=== PATIENT | female | born 1945 | race Caucasian/White ===

== ENCOUNTER → 2017-05-13 | Outpatient (CLI) | payer OTHER ==
[~2017-05-13] VITALS: Ht 165.1 cm; Wt 72.6 kg
[~2017-05-13] MED LIST: AQUA CARE71 GM TOP; ASPIRIN81 M2 PO; DILTIAZEM ER300 M2 PO; ECONAZOLE 1% CR30 G1 TOP; FLONASE 0.05%50 MCG NASAL; HYDROCHLOROTHIA25 M2 PO; KLOR-CON M2020 MEQ PO; LASIX 20 MG TAB20 MG PO; LASTACAFT3 ML OPHTHALMIC; LORATIDINE 10 M10 M1 PO; MOBIC15 MG PO; MYRBETRIQ25 MG PO; NEURONTIN 300300 M1 PO; NORCO 5-325 TA1 EACH PO; OMEPRAZOLE40 MG PO; ONDANSETRON HCL4 M2 PO; PROAIR HFA8.5 GM INH; PROMETHAZINE/C118 ML PO; RESTORIL30 MG PO; SINGULAIR 10 MG10 M1 PO; SYMBICORT160 MCG/4. INH; TRAMADOL 50 MG50 MG PO; ZANAFLEX4 MG PO; ZANTAC 150MG T150 MG PO
--- NOTE | ~2017-05-13 | HPC ---
[facility] [place] [address] PAIN MANAGEMENT CONSULTATION Name: FLAKO BUSTILLO Room #: REG Mariya Tsang#: [id number] Admission: 05/13/17 Attend Phys: Benitez Oneill DO Discharge: Date of : 43 Report #: [id number] THIS REPORT FOR: //name// CC: Trudi Oneill The patient is a 71-year-old female, seen in consultation at the request of Dr. Malagon for evaluation of low back pain. The patient notes pain has been chronic since perhaps late . Low back with radiation into the anterior thighs. Exacerbated with standing and walking. She has also noted some fecal incontinence for the past 3 years, though this was noted by Dr. Lora, he noted some loose sphincter tone. She has a followup appointment with Dr. Lora 05/23/2017, for a repeat colonoscopy. She denies insensate incontinence and denies saddle anesthesia, but does state she has paresthesia in her thighs and subjective weakness in the legs. She has been prescribed hydrocodone 5/325 b.i.d., tramadol 50 mg b.i.d., Meloxicam 15 mg 1 a day, gabapentin 300 mg at bedtime, and tizanidine 4 mg up to 3 times a day for muscle spasm, all with some efficacy. She notes she has done physical therapy in the past and has been continuing to do the exercises instructed by the physical therapist. She notes she has had relief with IM steroid injections in the past. She describes current symptoms as periodic, shooting, rates the pain an 8 on VAS. REVIEW OF SYSTEMS: A complete review of systems was attached to chart and was gone over with the patient. She is single, does not smoke, drink alcohol to excess. Has significant reactive airway disease, currently uses albuterol, Symbicort, ProAir HFA, and Singulair. Hypertension for which she takes Lasix, potassium supplement, hydrochlorothiazide, and diltiazem. Gastroesophageal reflux, on ranitidine and omeprazole. Overactive bladder for which she uses Myrbetriq and temazepam 30 mg at bedtime for insomnia. The patient is retired. She still does a little substitute teaching. Pain impact score averages about 8 for all indices queried. PHYSICAL EXAMINATION: Reveals a 5 feet 5 inches, 160 pound female. Vital signs are stable. Cranial nerves 2-12 are grossly intact. Pupils are equal and react to light and accommodation. Extraocular muscles are intact. There is no nystagmus or lateral gaze deviation. She does have some iritis and a little photophobia. Thyroid is unremarkable. Upper extremity strength is preserved. Heart is regular and rhythmical with a grade 2/6 systolic ejection murmur. Lungs are clear to auscultation. Abdomen shows a modestly endomorphic build. Rises from chair using armrest. Gait is tandem. Lumbar flexion is good to 90 degrees. She is very tender in the low back, particularly in the SI area. Tenderness starts about L3 down. Hip flexion exacerbates pain and hip flexion strength is little bit limited. Patellar reflexes are diminished. Achilles reflexes are preserved. Straight leg raise is negative. Skin integument is [address] [address] PAIN MANAGEMENT CONSULTATION Name: FLAKO BUSTILLO Room #: REG LATOYA Tsang#: [id number] Admission: 10/20/17 Attend Phys: Vincent G. Nino, DO Discharge: Date of : 43 Report #: [id number] intact. DIAGNOSTIC STUDIES: There are no recent diagnostic studies available for evaluation at this time. ASSESSMENT: 1. Lumbar radiculopathy classic L3 distribution. 2. Sacroiliac mediated pain by clinical exam. 3. Fecal incontinence per the patient, though this does not appear to be myelopathic, she does not have hyporeflexia, does not have saddle anesthesia and the incontinence is somewhat intermittent. RECOMMENDATIONS: 1. Epidural injection under fluoroscopy today. 2. X-ray of the lumbar spine. 3. Follow up in 3 weeks for reevaluation, consideration for repeat injection if indicated clinically. If she does not have incremental improvement of baseline pain, we want to get an MRI of the lumbar spine. Thank you for allowing me to participate in the patient's care. I will keep you abreast of her progress. PROCEDURE: Lumbar epidural injection under fluoroscopy. PROCEDURE NOTE: The patient was taken to the fluoroscopy suite, placed in prone position. After sterile prep and drape, skin wheal was raised. A 22-gauge stylet needle was placed into the posterior spinous process at L3-L4. Stylet was removed. A saline filled glass syringe was then connected under continuous plunger pressure and biplanar fluoroscopy, attempted to advance the needle in the epidural space. I had a difficult time advancing the needle at this location, there seemed to be a fair bit of fibrous tissue here. We elected to abort attempt at this level and proceed at L5-S1 where there was a wide open interspace. Second skin wheal with Xylocaine was raised. A 20-gauge epidural Tuohy needle was inserted in the midline at L5-S1 into the posterior spinous process ligaments. Again, the Stylet was removed, a saline filled glass syringe was connected with continuous plunger pressure and biplanar fluoroscopy, this needle was easily advanced into the epidural space. Negative aspiration was accomplished for cerebrospinal fluid or blood. 1 mL of Omnipaque was injected, which showed spread within the epidural space, which is followed with 80 mg of triamcinolone plus 2 mL of 1% preservative-free Xylocaine. Needle was removed, area was cleansed, Band-Aids applied. [facility] [address] [place] [address] PAIN MANAGEMENT CONSULTATION Name: FLAKO BUSTILLO Room #: REG LATOYA Tsang#: [id number] Admission: 05/13/17 Attend Phys: Benitez Oneill DO Discharge: Date of : 43 Report #: [id number] patient was monitored for an appropriate period of time, discharged in good and stable condition. <ELECTRONICALLY SIGNED> By: Benitez Oneill DO 05/16/17 0657 [id number] Benitez Oneill DO /nt
[2017-05-13 14:30] VITALS: BP 141/87
== END | disposition home or self-care (01) ==
LOC: PAIN 07:18
DX: M54.16 Radiculopathy, lumbar region (principal); R15.9 Full incontinence of feces; J45.909 Unspecified asthma, uncomplicated; I10 Essential (primary) hypertension; K21.9 Gastro-esophageal reflux disease without esophagitis; Z79.899 Other long term (current) drug therapy; M53.3 Sacrococcygeal disorders, not elsewhere classified

== ENCOUNTER → 2017-06-02 | Outpatient (CLI) | payer OTHER ==
[~2017-06-02] VITALS: Ht 165.1 cm; Wt 74.4 kg
--- NOTE | ~2017-06-02 | HPC ---
[facility] [place] [address] PAIN MANAGEMENT CONSULTATION Name: FLAKO BUSTILLO Room #: REG LATOYA Tsang#: [id number] Admission: 06/02/17 Attend Phys: Benitez Oneill DO Discharge: Date of : 43 Report #: [id number] THIS REPORT FOR: //name// CC: Trudi Oneill DATE OF SERVICE: 06/02/2017 HISTORY OF PRESENT ILLNESS: The patient is a delightful 71-year-old female. She was seen in consultation on 05/13/2017, diagnosed with symptomatic lumbar radiculopathy, was given epidural injection at L5-S1. Returns to pain clinic today noting dramatic improvement in baseline pain, in fact noted pain was absent for several weeks. Pain is gradually beginning to recur. She rates it a 5 on a VAS. Pain is in the low back, left buttock and leg. She wished to repeat the injection today. PHYSICAL EXAMINATION: GENERAL: Shows a pleasant 71-year-old female. BMI is 27.3 kilograms per meter squared. Subjective pain score is 5. VITAL SIGNS: Blood pressure is 150/91, pulse 76, respirations 18. MUSCULOSKELETAL: Still has modestly antalgic gait, positive straight leg raise on the left. ASSESSMENT: Symptomatic lumbar radiculopathy by clinical exam and history. RECOMMENDATIONS: Repeat epidural injection under fluoroscopy today at L5-S1. Follow up simply as needed. PROCEDURE: Lumbar epidural injection under fluoroscopy. PROCEDURE NOTE: After both written and informed consent to include risk of spinal cord damage, increased pain, weakness and dural puncture, the patient was taken to the fluoroscopy suite, placed in the prone position. After sterile prep and drape, a skin wheal with lidocaine was raised. A 22-gauge epidural Tuohy needle was inserted in the midline at L5-S1 with good loss to resistance. Negative aspiration for cerebrospinal fluid or blood was noted. Then 1 mL of Omnipaque under biplanar fluoroscopy showed good spread within the epidural space. This was followed with 80 mg of triamcinolone plus 1 mL of 1.5% preservative-free Xylocaine, 0.5 mL Xylocaine was then injected to flush the needle; it was removed. The patient was monitored for an appropriate period of time and discharged in good and stable condition. <ELECTRONICALLY SIGNED> By: Benitez Oneill DO 06/03/17 0731 [id number] [id number] Benitez Oneill DO /nt
[2017-06-02 14:08] VITALS: BP 133/91
== END | disposition home or self-care (01) ==
LOC: PAIN 06:57
DX: M54.16 Radiculopathy, lumbar region (principal)

== ENCOUNTER → 2018-04-18 | Outpatient (CLI) | payer OTHER ==
[~2018-04-18] VITALS: Ht 165.1 cm; Wt 76.6 kg
[~2018-04-18] MED LIST changes: +PERCOCET 7.5-31 EAC1 PO
[2018-04-18 14:03] VITALS: BP 168/94
== END ==
LOC: PAIN 07:18
DX: M54.5 Low back pain (principal); M79.604 Pain in right leg; Z79.899 Other long term (current) drug therapy

== ENCOUNTER → 2018-04-26 | Outpatient (CLI) | payer OTHER ==
[~2018-04-26] VITALS: Ht 165.1 cm; Wt 75.3 kg
--- NOTE | ~2018-04-26 | HPC ---
[facility] [address] [place] [address] PAIN MANAGEMENT CONSULTATION Name: IWONAFLAKO A Room #: REG Mariya Trinh#: [id number] Admission: 04/26/18 Attend Phys: Juan Francisco Oneill DO Discharge: Date of : 43 Report #: [id number] THIS REPORT FOR: //name// CC: Trudi Oneill DATE OF SERVICE: 04/26/2018 REFERRING PHYSICIAN: Trudi Malagon M.D. CHIEF COMPLAINT: Low back pain and right lower extremity pain with paresthesias. HISTORY OF PRESENT ILLNESS: As you know, the patient is a very pleasant 72-year-old female who returns today in followup visit per the request of her primary care physician to discuss lumbar radiculopathy involving the right lower extremity. She indicates pain has begun to intensify without inciting injury or trauma. She indicates majority of pain began in the buttock area, radiates down the leg to near the foot. She has been referred back to our clinic to discuss treatment options for now, low back pain and right lower extremity pain. She denies injury or trauma that may have led to symptom development. She describes the pain as sharp, tender in sensation, exacerbated with walking and standing, improves with medications, rest. She is placing pain score today 6/10. ALLERGIES: No known drug allergies. CURRENT MEDICATIONS: Percocet 7.5/325 four times a day, aspirin 81 mg per day, Symbicort 1 puff b.i.d., urea cream apply topically as necessary, promethazine/codeine syrup p.r.n. cough, Lastacaft 3 drops each eye per day, fluticasone 2 sprays each nostril per day, ondansetron 4 mg p.r.n., montelukast sodium 10 mg per day, loratadine 10 mg per day, albuterol 2 puffs q. 4 hours p.r.n., temazepam 30 mg at bedtime, omeprazole 40 mg once a day, ranitidine 150 mg once a day, Myrbetriq 25 mg per day, hydrochlorothiazide 25 mg once a day, diltiazem 300 mg once a day, gabapentin 300 mg once a day, potassium chloride 20 mEq p.o. 3 times a day, furosemide 20 mg per day, meloxicam 15 mg once a day, tramadol 50 mg every 6 hours p.r.n. for pain and tizanidine 4 mg per day. SOCIAL HISTORY: The patient denies tobacco, alcohol, IV or illicit drug use. She is unaccompanied today. IMAGING DATA: No new imaging available. PQRS: The patient has osteoarthritic changes in the low back. No rheumatoid arthritis. Pain intensity 6/10. She is not at the fall risk, has not had a fall in the last 3 months. She is not on blood thinner. She is treated for [address] [address] PAIN MANAGEMENT CONSULTATION Name: FLAKO BUSTILLO Room #: REG LATOYA Tsang#: [id number] Admission: 04/26/18 Attend Phys: Juan Francisco Oneill DO Discharge: Date of : 43 Report #: [id number] hypertension. She has been on opioids for greater than 6 weeks. She is a low risk for opioid addiction. Functional assessment pain impact tool 41/70 indicating [id number] interference of daily activities secondary to pain. PHYSICAL EXAMINATION: VITAL SIGNS: Blood pressure 153/90, pulse is 72, respiratory rate 16 and unlabored. The patient is 99% on room air. Height 5 feet 5 inches tall, weight 166 pounds and BMI calculated 27.6. GENERAL: Well-developed, well-nourished and well-hydrated 72-year-old female appearing stated age, placing current pain score at 6/10. HEENT: Normocephalic and atraumatic. Pupils equal, round and reactive to light. Extraocular muscles are intact. EXTREMITIES: Show no clubbing, no cyanosis and no edema. MUSCULOSKELETAL: Seated straight leg raising negative. Supine straight leg raising positive. Sabino's test negative. Modified Gaenslen's positive for axial low back pain. Ankle clonus negative. Babinski is negative. ASSESSMENT: 1. Lumbar radiculopathy. 2. Displacement of lumbar intervertebral disk with radiculopathy. 3. Lumbosacral spondylosis with radiculopathy. 4. Degeneration of the lumbar spine. 5. Chronic intractable pain. PLAN: 1. The patient has returned today in followup visit to undergo epidural injection under fluoroscopic guidance. The patient has been advised of the risks and the benefits of this procedure. These risks include but are not necessarily limited to bleeding, bruising, infection, worsening pain, no relief of pain, also risk of temporary or permanent muscle weakness, temporary or permanent nerve damage, possible paralysis and . The patient states understood and wished to proceed. 2. The patient was provided refill prescription on his Percocet 7.5/325 one tab p.o. q. 8 hours p.r.n. for pain, I have given the patient #60 tablets, advised the patient to take the medication only when pain is intolerable. The patient was given a prescription of #60 at last visit but was advised by her pharmacist they would only be willing to provide one week worth of medication. She was advised by the pharmacist that this is a new [place] law and that is absolutely not the case. There is no the books that indicates that 1 week of medications can be provided only. The patient is not opioid na?ve, has been on opioids for very long period of time. This is not a significant change in her medication, in fact it is the similar medication she came to us on. I advised the patient at this point, the pharmacist had no right to make a change in a controlled substance prescription and I have advised the patient to seek another pharmacy. 3. We will see the patient back in followup visit in 1 month. We will discuss [address] [address] PAIN MANAGEMENT CONSULTATION Name: FLAKO BUSTILLO Room #: REG CL Trinh#: [id number] Admission: 04/26/18 Attend Phys: Juan Francisco Oneill DO Discharge: Date of : 43 Report #: [id number] the efficacy of the epidural injection to determine if continuation of medication management would be warranted. PROCEDURE NOTE DESCRIPTION OF PROCEDURE: L5-S1 right paramedian epidural steroid injection under fluoroscopic guidance. This is the first procedure of the second series that the patient is undergoing. After obtaining written consent, the patient was taken back to the fluoroscopy suite, placed in a prone position with pillow under the abdomen to decrease lumbar lordosis. The skin overlying the lumbosacral area was then prepped and draped in aseptic fashion. The L5-S1 vertebral interspace was then identified by AP fluoroscopy. The skin and subcutaneous tissue overlying the target site of injection was anesthetized with 3 mL 1% lidocaine. A 20-gauge 3-1/2-inch Tuohy needle was then advanced under fluoroscopic guidance towards the epidural space using a right paramedian approach. The epidural space was identified using loss of resistance to air technique. After negative aspiration for heme or cerebrospinal fluid, a total of 1 mL of Omnipaque was injected. A lumbar epidurogram was confirmed using both AP and lateral fluoroscopy. After negative aspiration for heme or cerebrospinal fluid, 5 mL of a solution containing 2 mL 40 mg per mL, 80 mg total triamcinolone, 3 mL lidocaine 1% was injected in increments. Contrast spread was noted posterior epidural space. The needle was then retracted approximately half way and needle tract flushed with 1 mL of 1% lidocaine. Needle was then removed. There were no apparent sensory or motor deficits in the lower extremity following the procedure. A sterile bandage was placed over the injection site. The heart rate, pulse, oximetry and blood pressure were continuously monitored after the procedure. There were no apparent complications. The patient tolerated the procedure well and was carefully escorted to the recovery room in stable condition. There were no apparent complications. After meeting discharge criteria, the patient was then discharged home. <ELECTRONICALLY SIGNED> By: Juan Francisco Oneill DO 05/02/18 0727 [id number] Juan Francisco Oneill DO /nt
[2018-04-26 09:47] VITALS: BP 153/90
== END | disposition home or self-care (01) ==
LOC: PAIN 06:52
DX: M51.16 Intervertebral disc disorders with radiculopathy, lumbar region (principal); M47.27 Other spondylosis with radiculopathy, lumbosacral region; G89.29 Other chronic pain; Z79.899 Other long term (current) drug therapy; Z79.82 Long term (current) use of aspirin; Z79.891 Long term (current) use of opiate analgesic

== ENCOUNTER → 2018-05-10 | Outpatient (CLI) | payer OTHER ==
[~2018-05-10] VITALS: Ht 165.1 cm; Wt 76.9 kg
--- NOTE | ~2018-05-10 | HPC ---
[facility] [address] [place] [address] PAIN MANAGEMENT CONSULTATION Name: IWONAFLAKO A [facility]: [facility] [id number] Admission: 05/10/18 Attend Phys: Juan Francisco Oneill DO Discharge: Date of : 43 Report #: [id number] THIS REPORT FOR: //name// CC: Trudi Oneill DATE OF SERVICE: 05/10/2018 REFERRING PHYSICIAN: Trudi Malagon MD. CHIEF COMPLAINT: Low back pain, right lower extremity pain with paresthesias and increasing left lower extremity pain with paresthesias. HISTORY OF PRESENT ILLNESS: As you know, the patient is a very pleasant 72-year-old female who returns today in followup visit with continued low back pain, bilateral lower extremity pain and paresthesias. She indicates pain is chronic in nature, sharp, tenderness, numbness and tingling when describing pain, placing current pain score 7/10. She states walking and standing exacerbate symptoms. Medications and rest tend to improve pain. As you are aware, the patient underwent epidural injection under fluoroscopic guidance at last visit to address lumbar radicular symptoms. She reports about a 50% improvement in overall pain with this procedure. She returns today requesting to undergo next in the series of epidural injections in hopes of improving pain further. She denies new injury or new traumas may have led to symptom development. ALLERGIES: No known drug allergies. CURRENT MEDICATIONS: See extensive list in chart. SOCIAL HISTORY: The patient denies tobacco, alcohol, IV or illicit drug use. She is unaccompanied today. IMAGING: No new imaging available. PQRS: The patient has arthritic changes of the low back. No rheumatoid arthritis. She is placing pain intensity today 7/10. She is not a fall risk, has not had a fall in the last 3 months. She is not on blood thinners. She has history of hypertension. She is on chronic opioid medications. She has a low assessment for opioid addiction. Pain impact score 41/70, moderate. PHYSICAL EXAMINATION: VITAL SIGNS: Blood pressure 136/78, pulse is 66, respiratory rate 16 and unlabored. The patient is 97% on room air. Height 5 feet 5 inches tall. Weight 169.6 pounds, BMI calculated 28.2. [place] [address] PAIN MANAGEMENT CONSULTATION Name: FLAKO BUSTILLO Room #: [facility]ITALeJnaro.#: [id number] Admission: 05/10/18 Attend Phys: Juan Francisco Oneill DO Discharge: Date of : 44 Report #: [id number] GENERAL: Well-developed, well-nourished, well-hydrated 72-year-old female, appearing stated age, placing current pain score at 7/10. HEENT: Normocephalic, atraumatic. Pupils equal, round, reactive to light. Extraocular muscles are intact. Speech remains fluent. The patient deemed an excellent historian. EXTREMITIES: Show no clubbing, no cyanosis, no edema. MUSCULOSKELETAL: Lower extremity strength is symmetrical 5/5. She remains intact to light touch from L1 through S2 dermatomes. Seated straight leg raising negative. Supine straight leg raising positive on the left. DWAIN test negative. Modified Gaenslen's positive for axial low back pain. Ankle clonus negative. Babinski is negative. Muscle bulk and tone appears symmetrical in comparing left lower extremity to right. ASSESSMENT: 1. Lumbar radiculopathy. 2. Displacement of lumbar intervertebral disk with radiculopathy. 3. Lumbosacral spondylosis with radiculopathy. 4. Degeneration of lumbar spine. 5. Chronic intractable pain. PLAN: 1. The patient has returned today in followup visit requesting to undergo next in the series of epidural injections under fluoroscopic guidance. She reports 50% improvement in overall pain with the previous epidural injection, but unfortunately, her symptoms have begun to return. She returns requesting next in the series of epidural injections. She has been advised the risks and benefits of the procedure, states understood and wished to proceed. 2. The patient and I did have a discussion today that if she does not note improvement in her symptoms with the second epidural injection for a prolonged period of time, we would recommend that patient look towards MRI of the lumbar spine for further evaluation. There may be a pathology that may ultimately need to be addressed surgically if she is not seeing improvement with more conservative treatment options. The patient will consider this. We will contact our clinic in a week and a half or 2 weeks if she is not noticing good benefit with today's epidural injection. 2. The patient was provided prescription of Percocet 7.5/325 one tab every 6 hours p.r.n. for pain. I have given the patient #90 tablets, advised to take the medication only as directed, not to take more than is prescribed. We reviewed the fact that opiate medications are being used to provide analgesia adequate to support activities of daily living, not attempting to achieve a specific pain score on the 0-10 Visual Analog Scale. The current opiate medications are providing sufficient analgesia to allow the patient to participate in activities of daily living. The patient is not exhibiting any aberrant behavior suggestive of drug diversion. The patient is not having any adverse reactions to medications. The patient is not suffering from daytime [address] [address] PAIN MANAGEMENT CONSULTATION Name: FLAKO BUSTILLO Room #: REG [facility]#: [id number] Admission: 05/10/18 Attend Phys: Juan Francisco Oneill DO Discharge: Date of : 44 Report #: [id number] somnolence or mental acuity changes. The patient is managing opiate-induced constipation with appropriate [id number] agents and dietary considerations. The patient was counseled on concern for caution with operating a motor vehicle while using opiate medications. A physical exam was performed and the patient's functional status was evaluated. All patients with back pain were advised against the bed rest greater than 4 days and were advised to return to normal activities. Pain score assessment was noted and the treatment plan was reviewed with the patient. All current medications, both prescribed and OTC were reviewed and reconciled on the electronic medical record. Tobacco screening was accomplished and smoking cessation was advised when indicated. BMI was noted and diet/exercise modification was recommended for all patients following outside normal parameters. I reviewed with the patient today their responsibilities to safeguard prescription medications, reviewed their responsibility to utilize medications only as prescribed by the physician. They are to seek and receive pain medications only from 1 physician group ([facility]). They are to use 1 pharmacy and keep the clinic informed if they change pharmacies. Their responsibilities include making followup visits in a timely fashion and to avoid abrupt discontinuation of medication usage. Their responsibilities further include bringing their medications (bottles from the pharmacy with residual pills) to the visit for possible confirmation of pill counts and the patient understands it is their responsibility to submit to random drug screens to ensure both that the medications prescribed are present, and that no other controlled substances are present. All prescriptions provided today were generated electronically. PROCEDURE NOTE DESCRIPTION OF PROCEDURE: Lumbar epidural steroid injection under fluoroscopic guidance. After obtaining written consent, the patient was taken back to fluoroscopy suite, placed in prone position with pillow under abdomen to decrease lumbar lordosis. Skin overlying lumbosacral area prepped and draped in aseptic fashion. Lumbar intervertebral spaces were identified by AP fluoroscopy. Skin and subcutaneous tissue overlying target site of injection was anesthetized with 3 mL of 1% lidocaine. A 20-gauge 3-1/2 inch Tuohy needle advanced under fluoroscopic guidance towards the epidural space using a right paramedian approach. Epidural space identified using loss of resistance to air technique. After negative aspiration for heme or cerebrospinal fluid, 1 mL of Omnipaque injected. A lumbar epidurogram confirmed using both AP and lateral fluoroscopy. After negative aspiration for [facility] [address] [place] [address] PAIN MANAGEMENT CONSULTATION Name: FLAKO BUSTILLO Room #: REG [facility] Tsang#: [id number] Admission: 05/10/18 Attend Phys: Juan Francisco Oneill DO Discharge: Date of : 43 Report #: [id number] heme or cerebrospinal fluid, 5 mL of a solution containing 2 mL 40 mg per mL, 80 mg total triamcinolone, 3 mL lidocaine 1% injected slowly. Needle retracted fdc, flushed with 1 mL of 1% lidocaine and removed. Sterile bandage placed over injection site. No new motor deficits present in lower extremities following procedure. The patient tolerated procedure well, carefully escorted to recovery room in stable condition. No apparent complications. After meeting discharge criteria, the patient discharged home. <ELECTRONICALLY SIGNED> By: Juan Francisco Oneill DO 05/12/18 0734 [id number] Juan Francisco Oneill DO /nt
[2018-05-10 10:58] VITALS: BP 136/78
== END | disposition home or self-care (01) ==
LOC: PAIN 07:13
DX: M51.16 Intervertebral disc disorders with radiculopathy, lumbar region (principal); M47.27 Other spondylosis with radiculopathy, lumbosacral region; G89.29 Other chronic pain; Z79.82 Long term (current) use of aspirin; Z79.899 Other long term (current) drug therapy

== ENCOUNTER → 2018-06-07 | Outpatient (CLI) | payer OTHER ==
[~2018-06-07] VITALS: Ht 165.1 cm; Wt 76.6 kg
--- NOTE | ~2018-06-07 | HPC ---
[facility] [address] [place] [address] PAIN MANAGEMENT CONSULTATION Name: IWONAFLAKO A Room #: [facility]#: [id number] Admission: 06/07/18 Attend Phys: Juan Francisco Oneill DO Discharge: Date of : 43 Report #: [id number] THIS REPORT FOR: //name// CC: Trudi Oneill DATE OF SERVICE: 06/07/2018 REFERRING PHYSICIAN: Trudi Malagon M.D. CHIEF COMPLAINT: Low back pain and right lower extremity pain with paresthesias. HISTORY OF PRESENT ILLNESS: As you know, the patient is a very pleasant 72-year-old female who returns today in followup visit to discuss efficacy of previous epidural injection and discuss the possibility of medication management. The patient indicates today pain of 1/10, states pain is sharp and tender in sensation, exacerbated with walking and standing, improves with medications and rest and previous epidural injection, which provided 85% improvement in overall pain, which is continuing. She returns requesting refill on Percocet for which she takes no more than 3 per day. She states this is working well for pain control. She was started on the medication on 04/18/2018 for baseline pain control. This will be used only on a temporary basis, will not be a long-term treatment option. She returns requesting the refill medication understanding that she is to utilize medication only when intolerable, not to rely on the medication prophylactically. She denies new injury or new trauma that may have led to continuation of pain. ALLERGIES: No known drug allergies. CURRENT MEDICATIONS: Percocet, aspirin, Symbicort, promethazine, codeine, Lastacaft, fluticasone, ondansetron, montelukast sodium, loratadine, albuterol, temazepam, omeprazole, ranitidine, Myrbetriq, hydrochlorothiazide, diltiazem, gabapentin, potassium chloride, furosemide, meloxicam, tramadol and tizanidine. SOCIAL HISTORY: The patient denies tobacco, alcohol or IV or illicit drug use. She is unaccompanied today. IMAGING DATA: No new imaging available. PQRS: The patient has known osteoarthritic changes in the low back. No rheumatoid arthritis. She places pain intensity 1/10, not a fall risk, has not had fall in the last 3 months. She is not on blood thinners. She is treated for hypertension. She has been on opioids but not greater than 6 weeks. She has a low potential for opioid addiction. Pain impact score 41/70, [place] [address] PAIN MANAGEMENT CONSULTATION Name: FLAKO BUSTILLO Ricardo Room #: REG [facility]#: [id number] Admission: 06/07/18 Attend Phys: Juan Francisco Oneill DO Discharge: Date of : 43 Report #: [id number] interference of daily activities secondary to pain. PHYSICAL EXAMINATION: VITAL SIGNS: Blood pressure 120/87, pulse 88 and respiratory rate 16 and unlabored. The patient is 98% on room air. Height 5 feet 5 inches tall, weight 168.8 pounds and BMI calculated 28.1. GENERAL: Well-developed, well-nourished, well-hydrated 72-year-old female appearing stated age, placing current pain score at 1/10. HEENT: Normocephalic and atraumatic. Pupils equal, round and reactive to light. EXTREMITIES: Show no clubbing, no cyanosis and no edema. MUSCULOSKELETAL: Lower extremity strength appears symmetrical 5/5, intact to light touch from L1 through S2 dermatomes. Seated straight leg raising negative. Supine straight leg raising remains mildly positive. Sabino test negative. Modified Gaenslen's positive for axial low back pain. ASSESSMENT: 1. Lumbar radiculopathy. 2. Displacement of lumbar intervertebral disk with radiculopathy. 3. Lumbosacral spondylosis with radiculopathy. 4. Degeneration of lumbar spine. 5. Chronic intractable pain. PLAN: 1. The patient returns today in followup visit having noted 85% improvement in overall pain with the epidural injection provided at our visit of 05/10/2018. The patient is extremely pleased with response to this treatment, returning only in followup visit requesting a refill of Percocet understanding that she is to utilize Percocet only on as needed basis. This will not be a long-term treatment option. This can be used for transient pain but cannot be taken on a t.i.d. basis consistently. The patient was advised of such today. We would recommend that if the patient's pain does intensify or she is relying on the Percocet consistently to undergo next in the series of epidural injections. 2. The patient was provided prescription of Percocet 7.5/325 one tab every 6 hours p.r.n. for pain, I have given the patient #90 tablets, advised to take this medication only as directed, not to exceed 3 tablets per day. We will see her back in followup visit on an as needed basis to discuss options for treatment if she does rely on these medications consistently. 3. We reviewed the fact that opiate medications are being used to provide analgesia adequate to support activities of daily living, not attempting to achieve a specific pain score on the 0-10 Visual Analog Scale. The current opiate medications are providing sufficient analgesia to allow the patient to participate in activities of daily living. The patient is not exhibiting any aberrant behavior suggestive of drug diversion. The patient is not having any adverse reactions to medications. The patient is not suffering from daytime somnolence or mental acuity changes. The patient is managing opiate-induced [facility] [address] [place] [address] PAIN MANAGEMENT CONSULTATION Name: FLAKO BUSTILLO Room #: REG [facility] Trinh#: [id number] Admission: 06/07/18 Attend Phys: Juan Francisco Oneill DO Discharge: Date of : 43 Report #: [id number] constipation with appropriate ijpx-[id number] agents and dietary considerations. The patient was counseled on concern for caution with operating a motor vehicle while using opiate medications. A physical exam was performed and the patient's functional status was evaluated. All patients with back pain were advised against the bed rest greater than 4 days and were advised to return to normal activities. Pain score assessment was noted and the treatment plan was reviewed with the patient. All current medications, both prescribed and OTC were reviewed and reconciled on the electronic medical record. Tobacco screening was accomplished and smoking cessation was advised when indicated. BMI was noted and diet/exercise modification was recommended for all patients following outside normal parameters. I reviewed with the patient today their responsibilities to safeguard prescription medications, reviewed their responsibility to utilize medications only as prescribed by the physician. They are to seek and receive pain medications only from 1 physician group ( [facility]). They are to use 1 pharmacy and keep the clinic informed if they change pharmacies. Their responsibilities include making followup visits in a timely fashion and to avoid abrupt discontinuation of medication usage. Their responsibilities further include bringing their medications (bottles from the pharmacy with residual pills) to the visit for possible confirmation of pill counts and the patient understands it is their responsibility to submit to random drug screens to ensure both that the medications prescribed are present, and that no other controlled substances are present. All prescriptions provided today were generated electronically. 4. We will see the patient back in followup visit on an as needed basis for the next in the series of epidural injections. We are pleased to see that she has done well with this injection reporting 85% improvement in overall pain. We wish the patient well and hope this lasts her for extended period of time. By: [id number] Juan Francisco Oneill DO /nt
[2018-06-07 11:08] VITALS: BP 120/87
== END ==
LOC: PAIN 07:25
DX: M54.5 Low back pain (principal); M79.604 Pain in right leg; G89.29 Other chronic pain; Z79.899 Other long term (current) drug therapy

== ENCOUNTER → 2018-08-02 | Outpatient (CLI) | payer OTHER ==
[~2018-08-02] VITALS: Ht 165.1 cm; Wt 75.9 kg
[~2018-08-02] MED LIST changes: +PERCOCET 10-321 EACH PO; +VOLTAREN GEL 1100 G2 TOP
--- NOTE | ~2018-08-02 | HPC ---
[facility] [place] [address] PAIN MANAGEMENT CONSULTATION Name: FLAKO BUSTILLO [facility] [id number] Admission: 08/02/18 Attend Phys: Juan Francisco Oneill DO Discharge: Date of : 43 Report #: [id number] THIS REPORT FOR: //name// CC: Trudi Oneill DATE OF SERVICE: 08/02/2018 CHIEF COMPLAINT: Low back pain, left lower extremity pain and paresthesias. HISTORY OF PRESENT ILLNESS: As you know, the patient is a 72-year-old female who returns today in followup visit with continued low back pain, but new distribution on the left side. The patient denies any new injury, trauma or changes in medical history that may have led to occurrence of pain now on the left side. She did indicate she may have exacerbated her symptoms after a fall she sustained while in [place], vacationing with her family. She states the pains that she experienced today are sharp, tender, numbness, tingling. Places current pain score 10/10. Walking, standing exacerbates symptoms; medications, rest and epidural injections have improved the pain in the past. She returns today, requesting a lumbar epidural injection under fluoroscopic guidance to address low back pain, lower extremity pain with paresthesias. ALLERGIES: No known drug allergies. CURRENT MEDICATIONS: Percocet, aspirin, Symbicort, promethazine, Codeine, Lastacaft, fluticasone, ondansetron, montelukast sodium, loratadine, albuterol, temazepam, omeprazole, ranitidine, Myrbetriq, hydrochlorothiazide, diltiazem, gabapentin, potassium chloride, furosemide, meloxicam, tramadol, tizanidine. SOCIAL HISTORY: The patient denies tobacco, alcohol, IV or illicit drug use. She is unaccompanied today. IMAGING: No new imaging available. PQRS: The patient has known arthritic changes of the bilateral knees, low back. No rheumatoid arthritis. She is placing pain intensity today at 10/10. She is a fall risk and has not had a fall in the last couple of weeks. She is using cane for ambulation. She is not on blood thinner. She is treated for hypertension. She has been on opioids for greater than 6 weeks but has a low potential for opioid addiction. She is placing pain impact score today at 41/70 indicating mqguagyo-io-[id number] interference of daily activities secondary to pain. PHYSICAL EXAMINATION: VITAL SIGNS: Blood pressure 154/78, pulse 66, respiratory rate [address] [address] PAIN MANAGEMENT CONSULTATION Name: IWONAFLAKO A Room #: REG [facility] Trinh#: [id number] Admission: 08/02/18 Attend Phys: Juan Francisco Oneill DO Discharge: Date of : 44 Report #: [id number] unlabored. The patient is 100% on room air, height 5 feet 5 inches tall, weight 167.4 pounds, BMI calculated 27.9. GENERAL: Well-developed, well-nourished, well-hydrated 72-year-old female appearing stated age, placing her pain score 10/10. HEENT: Normocephalic, atraumatic. Pupils equal, round, reactive to light. Extraocular muscles are intact. EXTREMITIES: Show no clubbing, no cyanosis, no edema. MUSCULOSKELETAL: Lower extremity strength appears symmetrical 5/5, some giveaway strength noted with hip flexion, knee extension on the left when compared to the right. Seated straight leg raising negative. Supine straight leg raising positive left. Sabino's test is negative. Modified Gaenslen's positive for axial low back pain. Ankle clonus is negative. Babinski is negative. Gait appears antalgic, favoring left lower extremity over right. ASSESSMENT: 1. Lumbar radiculopathy. 2. Displacement of lumbar intervertebral disk with radiculopathy. 3. Lumbosacral spondylosis with radiculopathy. 4. Lumbar degeneration. 5. Acute knee pain. 6. Chronic intractable pain. PLAN: 1. The patient returns today in followup visit, having recently sustained a fall that led to low back pain, left lower extremity pain with paresthesias. The patient states the back pain is similar to previous evaluations, but new distribution on the left side. She does not have any new imaging available to review, but it does appear that her symptoms are radicular in origin. She also has some tenderness to palpation over the knee, status post fall, but it does not appear any bony abnormalities or any ecchymosis over the knee itself. There is some swelling in the knee, which is typical status post fall. The patient has returned, requesting a lumbar epidural injection to address the findings on the physical exam. She has been advised risks and benefits, states understood and wished to proceed. 2. The patient was provided refill prescription of her Percocet 7.5/325 one tab p.o. q.6 hours p.r.n. for pain, I have given the patient #90, releases of today, 4 weeks from today, 2 months' worth of medication. The patient was advised to take the medication only as directed, not to rely on the medication prophylactically. 3. We reviewed the fact that opiate medications are being used to provide analgesia adequate to support activities of daily living, not attempting to achieve a specific pain score on the 0-10 Visual Analog Scale. The current opiate medications are providing sufficient analgesia to allow the patient to participate in activities of daily living. The patient is not exhibiting any aberrant behavior suggestive of drug diversion. The patient is not having any adverse reactions to medications. The patient is not suffering from daytime [facility] [address] [place] [address] PAIN MANAGEMENT CONSULTATION Name: FLAKO BUSTILLO Room #: REG [facility] Tsang#: [id number] Admission: 08/02/18 Attend Phys: Juan Francisco Oneill DO Discharge: Date of : 44 Report #: [id number] somnolence or mental acuity changes. The patient is managing opiate-induced constipation with appropriate qphh-rhg-lfsfnpo agents and dietary considerations. The patient was counseled on concern for caution with operating a motor vehicle while using opiate medications. A physical exam was performed and the patient's functional status was evaluated. All patients with back pain were advised against the bed rest greater than 4 days and were advised to return to normal activities. Pain score assessment was noted and the treatment plan was reviewed with the patient. All current medications, both prescribed and OTC were reviewed and reconciled on the electronic medical record. Tobacco screening was accomplished and smoking cessation was advised when indicated. BMI was noted and diet/exercise modification was recommended for all patients following outside normal parameters. I reviewed with the patient today their responsibilities to safeguard prescription medications, reviewed their responsibility to utilize medications only as prescribed by the physician. They are to seek and receive pain medications only from 1 physician group ( [facility]). They are to use 1 pharmacy and keep the clinic informed if they change pharmacies. Their responsibilities include making followup visits in a timely fashion and to avoid abrupt discontinuation of medication usage. Their responsibilities further include bringing their medications (bottles from the pharmacy with residual pills) to the visit for possible confirmation of pill counts and the patient understands it is their responsibility to submit to random drug screens to ensure both that the medications prescribed are present, and that no other controlled substances are present. All prescriptions provided today were generated electronically. 4. The patient was provided a prescription of Voltaren gel 1% solution applied topically up to 3 times a day over the left knee. I have given the patient 3 tubes 100 grams each with refills if necessary. 3. We will see the patient back in followup visit on an as-needed basis for the next in the series of lumbar epidural injections. PROCEDURE NOTE DESCRIPTION OF PROCEDURE: L5-S1 left paramedian epidural steroid injection under fluoroscopic guidance. This is the second procedure of the second series that the patient is undergoing. After obtaining written consent, the patient was taken back to the fluoroscopy suite, placed in a prone position with pillow under the abdomen to decrease lumbar lordosis. The skin overlying the lumbosacral area was then prepped and draped in aseptic fashion. The L5-S1 vertebral [place] [address] PAIN MANAGEMENT CONSULTATION Name: FLAKO BUSTILLO Room #: REG [facility] Tsang#: [id number] Admission: 08/02/18 Attend Phys: Juan Francisco Oneill DO Discharge: Date of : 44 Report #: [id number] by AP fluoroscopy. The skin and subcutaneous tissue overlying the target site of injection was anesthetized with 3 mL 1% lidocaine. A 20 gauge 3.5 inch Tuohy needle was then advanced under fluoroscopic guidance towards the epidural space using a left paramedian approach. The epidural space was identified using loss of resistance to air technique. After negative aspiration for heme or cerebrospinal fluid, a total of 1 mL of Omnipaque was injected. A lumbar epidurogram was confirmed using both AP and lateral fluoroscopy. After negative aspiration for heme or cerebrospinal fluid, 5 mL of a solution containing 2 mL 40 mg per mL, 80 mg total triamcinolone, 3 mL lidocaine 1% was injected in increments. Contrast spread was noted post epidural space. The needle was then retracted approximately half way and needle tract flushed with 1 mL of 1% lidocaine. Needle was then removed. There were no apparent sensory or motor deficits in the lower extremity following the procedure. A sterile bandage was placed over the injection site. The heart rate, pulse, oximetry and blood pressure were continuously monitored after the procedure. There were no apparent complications. The patient tolerated the procedure well and was carefully escorted to the recovery room in stable condition. There were no apparent complications. After meeting discharge criteria, the patient was then discharged home. By: [id number] Juan Francisco Oneill DO /nt
[2018-08-02 09:42] VITALS: BP 154/78
--- NOTE | 2018-08-02 09:54 | NUR ---
Pain Clinic Assessment: 1. History of Osteoarthritis: Not Applicable History of Rheumatoid Arthritis: Not Applicable 2. Height: 5 ft. 5 in. 165.1 cm. Weight: 167.4 lb. oz. 75.932 kg. Patient's BMI: 27.9 3. Vital Signs: BP: 154/78 Pulse: 66 Resp: 18 Temp: 02 Sat: 100 ECG Mon: 4. Pain Intensity: 10 5. Fall Risk: Dizziness: N Needs help standing or walking: N Fallen in the last 3 months: Y Fall risk comments: 6. Patient on Blood Thinner: None 7. History of Hypertension: Y 8. Opioid Therapy greater than 6 weeks: N Opiate Contract Signed: 9. Risk Assessment Tool Provided: 0-LOW 10. Functional Assessment Tool: 41/ 11. Recreational Drug Use: Never Drug Type: Tobacco Use: Never Smoker Tobacco Type: Amount or Packs/day: How Many Years: Alcohol Use: No Frequency: Quant:
== END | disposition home or self-care (01) ==
LOC: PAIN 06:52
DX: M51.16 Intervertebral disc disorders with radiculopathy, lumbar region (principal); M47.27 Other spondylosis with radiculopathy, lumbosacral region; G89.29 Other chronic pain; M25.562 Pain in left knee; I10 Essential (primary) hypertension; Z79.82 Long term (current) use of aspirin; Z79.899 Other long term (current) drug therapy

== ENCOUNTER → 2018-09-26 | Outpatient (CLI) | payer OTHER ==
[~2018-09-26] VITALS: Ht 165.1 cm; Wt 78.5 kg
--- NOTE | ~2018-09-26 | HPC ---
[facility] [place] [address] PAIN MANAGEMENT CONSULTATION Name: FLAKO BUSTILLO Room #: REG [facility] Ish.#: [id number] Admission: 09/26/18 ������������������ Attend Phys: Juan Francisco Oneill DO Discharge: ������������������ Date of : 44 Report #: [id number] THIS REPORT FOR: //name// CC: Trudi Oneill DATE OF SERVICE: 09/26/2018 REFERRING PHYSICIAN: Trudi Malagon M.D. CHIEF COMPLAINT: Low back pain and left lower extremity pain with paresthesias. HISTORY OF PRESENT ILLNESS: As you know, the patient is a very pleasant 72-year-old female returning today in followup visit with recurrent low back pain and left lower extremity pain with paresthesias. She is reporting pain today at level of 10/10. The patient states that she recently sustained a fall on the ice exacerbating her typical lumbar radicular symptoms. She has not sought evaluation or treatment through another physician since that fall. She states she was in her normal state of health and actually doing very well from a pain standpoint when she sustained this fall leading to instantaneous back and left lower extremity pain and her typical radiating distribution. She returns today requesting an epidural injection under fluoroscopic guidance. Also, requesting refill of medications for which she takes Percocet and Voltaren gel. ALLERGIES: No known drug allergies. CURRENT MEDICATIONS: Voltaren gel 1%, Percocet, aspirin, Symbicort, promethazine, codeine, Lastacaft, fluticasone, ondansetron, montelukast sodium, loratadine, albuterol, temazepam, omeprazole, ranitidine, Myrbetriq, hydrochlorothiazide, diltiazem, gabapentin, potassium chloride, furosemide, meloxicam, tramadol and tizanidine. SOCIAL HISTORY: The patient denies tobacco, alcohol or IV or illicit drug use. She is unaccompanied today. IMAGING DATA: No new imaging available. PQRS: The patient has known osteoarthritic changes of the bilateral knees and the lumbar spine, no rheumatoid arthritis. She is placing pain today 10/10. She is not typically a fall risk, but has had a fall in the last 3 months leading to the precipitation of this pain. She does not use any type of ambulatory or assistive devices. She is not on blood thinner. She is treated for hypertension. She is not on chronic opioids. She has a low opiate addiction potential. She is placing pain impact score 41/70, moderate interference of [place] [address] PAIN MANAGEMENT CONSULTATION Name: FLAKO BUSTILLO Room #: REG [facility] Trinh#: [id number] Admission: 09/26/18 ������������������ Attend Phys: Juan Francisco Oneill DO Discharge: ������������������ Date of : 44 Report #: [id number] PHYSICAL EXAMINATION: VITAL SIGNS: Blood pressure 174/100, pulse is 74 and respiratory rate 18 and unlabored. The patient is 100% on room air. Height 5 feet 5 inches tall, weight 173 pounds and BMI calculated 28.8. GENERAL: Well-developed, well-nourished and well-hydrated 72-year-old female appearing stated age, placing current pain score 10/10. HEENT: Normocephalic and atraumatic. Pupils equal, round and reactive to light. Extraocular muscles are intact. Sclerae nonicteric, without injection. EXTREMITIES: Show no clubbing, no cyanosis and no edema. MUSCULOSKELETAL: Seated straight leg raising negative. Supine straight leg raising positive on the left. Sabino's test is negative. Modified Gaenslen's positive for axial low back pain. Ankle clonus is negative. Gait is antalgic favoring left lower extremity over right. Muscle bulk and tone equal and symmetrical in comparing left lower extremity over right. ASSESSMENT: 1. Symptomatic lumbar radiculopathy. 2. Displacement of lumbar intervertebral disk with radiculopathy. 3. Lumbosacral spondylosis with radiculopathy. 4. Lumbar degeneration. 5. Chronic intractable pain. PLAN: 1. 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 She states this instantaneously led to back pain, left lower extremity pain in her typical pain distribution. She returns today in followup visit requesting to undergo a lumbar epidural injection as she has done very well with previous epidural injection reporting 100% improvement in overall pain until this fall. She returns requesting this to be repeated today in hopes of improving pain as a similar injection had provided. She has been advised risks and benefits of the procedure, states understood and wished to proceed. 2. The patient was provided a refill prescription of her Voltaren gel 1% solution. I gave her three 100 gram tubes with no refills. This should last the patient for at least a month. 3. We reviewed the fact that opiate medications are being used to provide analgesia adequate to support activities of daily living, not attempting to achieve a specific pain score on the 0-10 Visual Analog Scale. The current opiate medications are providing sufficient analgesia to allow the patient to participate in activities of daily living. The patient is not exhibiting any aberrant behavior suggestive of drug diversion. The patient is not having any adverse reactions to medications. The patient is not suffering from daytime somnolence or mental acuity changes. The patient is managing opiate-induced constipation with appropriate neej-lgw-czicoto agents and dietary considerations. The patient was counseled on concern for caution with operating [facility] [address] [place] [address] PAIN MANAGEMENT CONSULTATION Name: FLAKO BUSTILLO Room #: REG [facility]..#: [id number] Admission: 09/26/18 ������������������ Attend Phys: Juan Francisco Oneill DO Discharge: ������������������ Date of : 44 Report #: [id number] a motor vehicle while using opiate medications. A physical exam was performed and the patient's functional status was evaluated. All patients with back pain were advised against the bed rest greater than 4 days and were advised to return to normal activities. Pain score assessment was noted and the treatment plan was reviewed with the patient. All current medications, both prescribed and OTC were reviewed and reconciled on the electronic medical record. Tobacco screening was accomplished and smoking cessation was advised when indicated. BMI was noted and diet/exercise modification was recommended for all patients following outside normal parameters. I reviewed with the patient today their responsibilities to safeguard prescription medications, reviewed their responsibility to utilize medications only as prescribed by the physician. They are to seek and receive pain medications only from 1 physician group ([facility]). They are to use 1 pharmacy and keep the clinic informed if they change pharmacies. Their responsibilities include making followup visits in a timely fashion and to avoid abrupt discontinuation of medication usage. Their responsibilities further include bringing their medications (bottles from the pharmacy with residual pills) to the visit for possible confirmation of pill counts and the patient understands it is their responsibility to submit to random drug screens to ensure both that the medications prescribed are present, and that no other controlled substances are present. All prescriptions provided today were generated electronically. 4. The patient was provided prescription of Percocet 7.5/325, one tab p.o. q. 8 hours p.r.n. for pain, I have given the patient #90 tablets, no refills, one month worth of medication. 5. We will see the patient back in followup visit on an as needed basis for possible next in the series of epidural injections. Otherwise, we will see her back for medication treatments if necessary. PROCEDURE NOTE: DESCRIPTION OF PROCEDURE: L5-S1 left paramedian epidural steroid injection under fluoroscopic guidance. This is the third procedure of the second series that the patient is undergoing. After obtaining written consent, the patient was taken back to the fluoroscopy suite, placed in a prone position with pillow under the abdomen to decrease lumbar lordosis. The skin overlying the lumbosacral area was then prepped and draped in aseptic fashion. The L5-S1 vertebral interspace was then identified by AP fluoroscopy. The skin and subcutaneous tissue overlying the target site of injection was anesthetized with 3 mL 1% lidocaine. [address] [address] PAIN MANAGEMENT CONSULTATION Name: FLAKO BUSTILLO Room #: REG [facility] Tsang#: [id number] Admission: 09/26/18 ������������������ Attend Phys: Juan Francisco Oneill DO Discharge: ������������������ Date of : 43 Report #: [id number] A 20-gauge 3-1/2 inch Tuohy needle was then advanced under fluoroscopic guidance towards the epidural space using a left paramedian approach. The epidural space was identified using loss of resistance to air technique. After negative aspiration for heme or cerebrospinal fluid, a total of 1 mL of Omnipaque was injected. A lumbar epidurogram was confirmed using both AP and lateral fluoroscopy. After negative aspiration for heme or cerebrospinal fluid, 5 mL of a solution containing 2 mL 40 mg per mL, 80 mg total triamcinolone, 3 mL lidocaine 1% was injected in increments. Contrast spread was noted posterior epidural space. The needle was then retracted approximately half way and needle tract flushed with 1 mL of 1% lidocaine. Needle was then removed. There were no apparent sensory or motor deficits in the lower extremity following the procedure. A sterile bandage was placed over the injection site. The heart rate, pulse, oximetry and blood pressure were continuously monitored after the procedure. There were no apparent complications. The patient tolerated the procedure well and was carefully escorted to the recovery room in stable condition. There were no apparent complications. After meeting discharge criteria, the patient was then discharged home. ��������������������������������������������� ���������������������������������������� By: ��������������������������������������������� 1716 0910 Juan Francisco Oneill DO /nt
[2018-09-26 13:46] VITALS: BP 174/100
--- NOTE | 2018-09-26 13:55 | NUR ---
Pain Clinic Assessment: 1. History of Osteoarthritis: Not Applicable History of Rheumatoid Arthritis: Not Applicable 2. Height: 5 ft. 5 in. 165.1 cm. Weight: 173.0 lb. oz. 78.472 kg. Patient's BMI: 28.8 3. Vital Signs: BP: 174/100 Pulse: 74 Resp: 18 Temp: 02 Sat: 100 ECG Mon: 4. Pain Intensity: 10 5. Fall Risk: Dizziness: N Needs help standing or walking: N Fallen in the last 3 months: Y Fall risk comments: 6. Patient on Blood Thinner: None 7. History of Hypertension: Y 8. Opioid Therapy greater than 6 weeks: N Opiate Contract Signed: 9. Risk Assessment Tool Provided: 0-LOW 10. Functional Assessment Tool: 11. Recreational Drug Use: Never Drug Type: Tobacco Use: Never Smoker Tobacco Type: Amount or Packs/day: How Many Years: Alcohol Use: No Frequency: Quant:
== END | disposition home or self-care (01) ==
LOC: PAIN 06:49
DX: M51.16 Intervertebral disc disorders with radiculopathy, lumbar region (principal); M47.27 Other spondylosis with radiculopathy, lumbosacral region; G89.29 Other chronic pain; M17.0 Bilateral primary osteoarthritis of knee; I10 Essential (primary) hypertension; Z79.899 Other long term (current) drug therapy; Z79.82 Long term (current) use of aspirin

== ENCOUNTER 2018-10-09 14:58 | Emergency (ER) | payer OTHER ==
[~2018-10-09] VITALS: Ht 172.7 cm; Wt 74.8 kg
[2018-10-09 15:47] LABS: ABSOLUTE NEUTROPHILS 7.3 thou/uL (1.4-8.2); BASOPHILS 0.9 % (0.0-2.0); EOSINOPHILS 0.9 % (0.0-3.0); HEMATOCRIT 41.3 % (37.0-47.0); HEMOGLOBIN 13.8 gm/dL (12.0-15.0); MCHC 33.5 g/dL (28.0-37.0); MCV 95.6 fL (80.0-100.0); PLATELET COUNT 260 thou/uL (150-400); POLYS 71.2 % (36.0-66.0); RBC 4.32 mil/uL (4.20-5.00); WBC 10.3 thou/uL (4.0-11.0)
[2018-10-09 15:51] LABS: CALCIUM 9.3 mg/dL (8.5-10.1); CREATININE 0.7 mg/dL (0.6-1.0); POTASSIUM 3.6 mmol/L (3.5-5.1)
--- NOTE | 2018-10-09 17:15 | EKG ---
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 : 1945 Requested By: Migel Ohara Order Number: [id number] MD: Hector Bolaños Measurements Intervals [place] Rate: 76 P: -19 WV: 160 QRS: -23 QRSD: 84 T: -5 QT: 377 QTc: 424 Interpretive Statements Sinus rhythm Nonspecific T wave abnormality No previous ECG available for comparison Electronically Signed On 10-09-2018 17:14:53 CDT by Hector Bolaños [email or web address] ��������������������������������������������� <ELECTRONICALLY SIGNED> ���������������������������������������� By: Hector Bolaños MD, [facility] ��������������������������������������������� 10/09/18 1714 1515 1515 Hector Bolaños MD, FACC /EPI
[2018-10-09] MEDS ORDERED: TESSALON PERLE100 MG PO (18:26)
[2018-10-09] MEDS ORDERED: COZAAR 50 MG TA50 M1 PO (18:43)
[2018-10-09 18:54] VITALS: BP 135/71
== END 2018-10-09 18:55 | disposition home or self-care (01) ==
LOC: ER 14:58
PROVIDERS: Emergency Medicine
DX: I10 Essential (primary) hypertension (principal); J06.9 Acute upper respiratory infection, unspecified

== ENCOUNTER 2018-10-11 15:37 | Emergency (ER) | payer OTHER ==
[~2018-10-11] VITALS: Ht 165.1 cm; Wt 75.8 kg
[~2018-10-11 15:37] MED LIST changes: +COZAAR 50 MG TA50 M1 PO; +TESSALON PERLE100 MG PO
[2018-10-11 16:53] LABS: ABSOLUTE NEUTROPHILS 6.4 thou/uL (1.4-8.2); BASOPHILS 0.8 % (0.0-2.0); EOSINOPHILS 1.2 % (0.0-3.0); HEMATOCRIT 41.3 % (37.0-47.0); HEMOGLOBIN 13.9 gm/dL (12.0-15.0); LYMPHOCYTES 22.3 % (24.0-44.0); MCH 32.1 pg (26.0-34.0); MCHC 33.8 g/dL (28.0-37.0); MCV 95.2 fL (80.0-100.0); MONOCYTES 5.2 % (1.0-8.0); PLATELET COUNT 280 thou/uL (150-400); POLYS 70.5 % (36.0-66.0); RBC 4.33 mil/uL (4.20-5.00); RDW 13.3 % (10.5-14.5)
[2018-10-11 16:55] LABS: URINE BILIRUBIN NEGATIVE (Negative); URINE BLOOD NEGATIVE (Negative); URINE CLARITY CLEAR; URINE COLOR YELLOW; URINE GLUCOSE-RANDOM* NEGATIVE (Negative); URINE KETONES NEGATIVE (Negative); URINE LEUKOCYTES-REFLEX TRACE (Negative); URINE NITRITE-REFLEX NEGATIVE (Negative); URINE PROTEIN (DIPSTICK) NEGATIVE (Negative); URINE SPECIFIC GRAVITY 1.015 (1.005-1.035); URINE UROBILINOGEN 0.2 E.U./dl (0.2-1.0)
[2018-10-11 17:02] LABS: ANION GAP 8 mmol/L (7-16); BUN 14 mg/dL (7-18); CHLORIDE 102 mmol/L (98-107); CO2 30 mmol/L (21-32); CREATININE 0.8 mg/dL (0.6-1.0); GLUCOSE 94 mg/dL (74-106); POTASSIUM 3.3 mmol/L (3.5-5.1); SODIUM 140 mmol/L (136-145)
[2018-10-11 17:11] LABS: TROPONIN-I <0.06 ng/mL (<0.06)
[2018-10-11] MEDS ORDERED: HYDROCODONE-ACE15 ML PO (18:02)
[2018-10-11] MEDS ORDERED: NAPROSYN500 MG PO (18:02)
[2018-10-11 18:25] VITALS: BP 168/84
--- NOTE | 2018-10-12 17:51 | EKG ---
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[facility] : 1945 Requested By: Migel Ohara Order Number: [id number] MD: Hector Bolaños Measurements Intervals [place] Rate: 71 P: 22 WV: 152 QRS: -18 QRSD: 86 T: -4 QT: 400 QTc: 435 Interpretive Statements Sinus rhythm Ventricular premature complex Borderline left axis deviation RSR' in V1 or V2, probably normal variant Compared to ECG 10/09/2018 15:15:27 Ventricular premature complex(es) now present Electronically Signed On 10-12-2018 17:51:43 CDT by Hector Bolaños [email or web address] ��������������������������������������������� <ELECTRONICALLY SIGNED> ���������������������������������������� By: Hector Bolaños MD, [facility] ��������������������������������������������� 10/12/18 1751 1625 1625 Hector Bolaños MD, [facility] /EPI
== END 2018-10-11 18:25 | disposition home or self-care (01) ==
LOC: ER 15:37
PROVIDERS: Emergency Medicine
DX: I10 Essential (primary) hypertension (principal); R07.89 Other chest pain; R05 Cough

== ENCOUNTER → 2018-11-14 | Outpatient (CLI) | payer OTHER ==
[~2018-11-14] VITALS: Ht 165.1 cm; Wt 78.5 kg
[~2018-11-14] MED LIST changes: +HYDROCODONE-ACE15 ML PO; +NAPROSYN500 MG PO
[2018-11-14 12:37] VITALS: BP 180/108
--- NOTE | 2018-11-14 12:40 | NUR ---
Pain Clinic Assessment: 1. History of Osteoarthritis: Not Applicable History of Rheumatoid Arthritis: Not Applicable 2. Height: 5 ft. 5 in. 165.1 cm. Weight: 173.0 lb. oz. 78.472 kg. Patient's BMI: 28.8 3. Vital Signs: BP: 180/108 Pulse: 84 Resp: 13 Temp: 02 Sat: 99 ECG Mon: 4. Pain Intensity: 7 5. Fall Risk: Dizziness: N Needs help standing or walking: N Fallen in the last 3 months: Y Fall risk comments: TRIPPED ON SLIPPERY FLOOR 6. Patient on Blood Thinner: None 7. History of Hypertension: Y 8. Opioid Therapy greater than 6 weeks: N Opiate Contract Signed: 9. Risk Assessment Tool Provided: 0-LOW 10. Functional Assessment Tool: 41/ 11. Recreational Drug Use: Never Drug Type: Tobacco Use: Never Smoker Tobacco Type: Amount or Packs/day: How Many Years: Alcohol Use: No Frequency: Quant:
--- NOTE | 2018-11-15 14:08 | HPC ---
[facility] [address] [address] PAIN MANAGEMENT CONSULTATION Name: FLAKO BUSTILLO Room #: REG LATOYA Tsang#: [id number] Admission: 11/14/18 ������������������ Attend Phys: Roselyn Valdez Discharge: ������������������ Date of : 43 Report #: [id number] THIS REPORT FOR: //name// CC: Roselyn Malagon DATE OF SERVICE: 11/14/2018 CHIEF COMPLAINT: Low back pain, left lower extremity pain and left face pain. HISTORY OF PRESENT ILLNESS: This is a 72-year-old female who returns to the pain clinic today for her continued low back pain and a recent fall that affected her left side of her face and her left knee. She tells me her pain score is 7/10 today, worse with walking and standing. Her medication and rest is very helpful. She has pictures to show me of her face where she fell going up the steps and that her right knee was slightly swollen. She tells me that she did not seek any medical attention when she fell. She would like a refill of her medications today. While in her waiting room today, she did receive a phone call that said a family member had . She is crying throughout this visit and her blood pressure has been quite elevated. ALLERGIES: No known drug allergies. MEDICATIONS: Cozaar 50 mg daily, oxycodone 7.5/325 p.r.n., diclofenac gel p.r.n., aspirin 81 mg daily, Symbicort daily, promethazine with codeine p.r.n., Flonase p.r.n., Zofran 4 mg p.r.n., Singulair 10 mg at bedtime, Restoril 30 mg at bedtime, omeprazole 40 mg daily, Zantac 150 mg at bedtime, Myrbetriq 25 mg daily, hydrochlorothiazide 25 mg daily, diltiazem 300 mg daily, potassium 20 mEq t.i.d. and tizanidine p.r.n. PQRS: 1. She has known arthritic changes in her bilateral knees and lower back. Denies any rheumatoid arthritis. 2. Height is 5 feet 5 inches, weight is 173. BMI is 28. 3. VITAL SIGNS: 180/108, pulse is 84, respirations 14, oxygen sat is 99. 4. Pain score is 7/10. 5. Denies dizziness, not need help walking or standing, has fallen several times in recent history. 6. The patient is not on any blood thinners, does take medicine for hypertension. 7. Opioid therapy is greater than 6 weeks; therefore, an opioid signed contract will be placed in the chart for this patient to fill out. 8. Risk assessment tool is low. Functional assessment is 41/70. 9. Recreational drug use. She denies. She is not a smoker [place] [address] PAIN MANAGEMENT CONSULTATION Name: FLAKO BUSTILLO Ricardo Room #: REG Mariya Tsang#: [id number] Admission: 11/14/18 ������������������ Attend Phys: Roselyn Valdez Discharge: ������������������ Date of : 43 Report #: [id number] I did check the prescription monitoring system. The patient has failed numerous medications from various doctors including a recent ER visit where she received hydrocodone elixir from an ER doctor for a cough. We will place an informed consent for opioid treatment in the chart to fill if she continues to get narcotics from our office. PHYSICAL EXAMINATION: GENERAL: This is a well-developed, well-nourished, well-hydrated 72-year-old female, placing her pain score at 7/10 today. HEENT: Normocephalic, atraumatic. Pupils equal, round and reactive to light. She does have slight swelling on her left side of her face, below her left eye on her cheek bone. No discoloration noted. EXTREMITIES: No clubbing, no cyanosis, no edema. MUSCULOSKELETAL: Lower extremity strength appears symmetrical 5/5. Gait appears antalgic. She favors the right over the left today of a recent fall from her left knee, slight ecchymosis noted on her left knee today. ASSESSMENT: 1. Lumbar radiculopathy. 2. 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 3. Lumbosacral spondylosis with radiculopathy. 4. Lumbar degeneration. 5. Acute knee pain and face pain. 6. Chronic intractable pain. We reviewed the fact that opiate medications are being used to provide analgesia adequate to support activities of daily living, not attempting to achieve a specific pain score on the 0-10 Visual Analog Scale. The current opiate medications are providing sufficient analgesia to allow the patient to participate in activities of daily living. The patient is not exhibiting any aberrant behavior suggestive of drug diversion. The patient is not having any adverse reactions to medications. The patient is not suffering from daytime somnolence or mental acuity changes. The patient is managing opiate-induced constipation with appropriate jioi-mxe-mzycuet agents and dietary considerations. The patient was counseled on concern for caution with operating a motor vehicle while using opiate medications. A physical exam was performed and the patient's functional status was evaluated. All patients with back pain were advised against the bed rest greater than 4 days and were advised to return to normal activities. Pain score assessment was noted and the treatment plan was reviewed with the patient. All current medications, both prescribed and OTC were reviewed and reconciled on the electronic medical record. Tobacco screening was accomplished and smoking cessation was advised when indicated. BMI was noted and diet/exercise modification was recommended for all patients following outside normal parameters. [address] [address] PAIN MANAGEMENT CONSULTATION Name: FLAKO BUSTILLO Room #: REG [facility] Trinh#: [id number] Admission: 11/14/18 ������������������ Attend Phys: Roselyn Valdez Discharge: ������������������ Date of : 43 Report #: [id number] I reviewed with the patient today their responsibilities to safeguard prescription medications, reviewed their responsibility to utilize medications only as prescribed by the physician. They are to seek and receive pain medications only from 1 physician group ( [facility]). They are to use 1 pharmacy and keep the clinic informed if they change pharmacies. Their responsibilities include making followup visits in a timely fashion and to avoid abrupt discontinuation of medication usage. Their responsibilities further include bringing their medications (bottles from the pharmacy with residual pills) to the visit for possible confirmation of pill counts and the patient understands it is their responsibility to submit to random drug screens to ensure both that the medications prescribed are present, and that no other controlled substances are present. All prescriptions provided today were generated electronically. PLAN: 1. The patient returns today with a followup visit for medication refills. She tells me that she recently fell going up her steps and fell and hit her face and her knee. The patient had a similar fall in July and complained of knee pain as well. I encouraged the patient that when she does fall, she should seek medical attention and not waiting greater than a week to see any medical care and also I encouraged the patient to use a cane or walker if she continues to fall as she has several times recently. The patient has been using Voltaren gel to her knee and I encouraged her to take her anti-inflammatory also as needed, not taking them on the same day. 2. The patient was provided with a prescription for Percocet 7.5/325 one tablet every 6 hours p.r.n. for pain, quantity #90. She is to return when she needs refills of this medication. At that time, we will again discuss with her opioid consent for treatment to fill out agreement with our clinic. The patient has been filling medications at ER for her recent cough. We will discuss this again at that time if she wishes to continue on this medication. 3. The patient was in a hurry to leave today as a recent in the family was told to her when she was in the waiting room, she has been crying today and her blood pressure was elevated. She stated she would like another injection, but knows this is not the day to have that. I explained to her that she is able to have an injection when she feels like she is in need, just to call for an appointment as needed and if she does have to go out of town for a , she could call and try and get an appointment made before she leaves. The patient verbalizes understanding of this. 4. The patient is seen in collaboration today with Dr. Juan Francisco Oneill. ��������������������������������������������� <ELECTRONICALLY SIGNED> ���������������������������������������� By: Roselyn Valdez ��������������������������������������������� 11/15/18 1408 [id number] Roselyn Valdez /marla
== END ==
LOC: PAIN 07:06 → EDBD 07:06 → PAIN 09:56
DX: M51.16 Intervertebral disc disorders with radiculopathy, lumbar region (principal); M47.27 Other spondylosis with radiculopathy, lumbosacral region; G89.29 Other chronic pain; Z79.899 Other long term (current) drug therapy; Z79.891 Long term (current) use of opiate analgesic

== ENCOUNTER → 2019-01-02 | Outpatient (CLI) | payer OTHER ==
[~2019-01-02] VITALS: Ht 165.1 cm; Wt 80.2 kg
[2019-01-02 09:29] VITALS: BP 149/98
--- NOTE | 2019-01-02 09:42 | NUR ---
Pain Clinic Assessment: 1. History of Osteoarthritis: Not Applicable History of Rheumatoid Arthritis: Not Applicable 2. Height: 5 ft. 5 in. 165.1 cm. Weight: 176.8 lb. oz. 80.196 kg. Patient's BMI: 29.4 3. Vital Signs: BP: 149/98 Pulse: 80 Resp: 20 Temp: 02 Sat: 100 ECG Mon: 4. Pain Intensity: 10 5. Fall Risk: Dizziness: Y Needs help standing or walking: N Fallen in the last 3 months: Y Fall risk comments: TRIPPED ON SLIPPERY FLOOR 6. Patient on Blood Thinner: None 7. History of Hypertension: Y 8. Opioid Therapy greater than 6 weeks: N Opiate Contract Signed: 9. Risk Assessment Tool Provided: 0-LOW 10. Functional Assessment Tool: 41/ 11. Recreational Drug Use: Never Drug Type: Tobacco Use: Never Smoker Tobacco Type: Amount or Packs/day: How Many Years: Alcohol Use: No Frequency: Quant:
--- NOTE | 2019-01-10 12:17 | HPC ---
[facility] [place] [address] PAIN MANAGEMENT CONSULTATION Name: IWONAFLAKO A Room #: REG LATOYA Trinh#: [id number] Admission: 01/02/19 ������������������ Attend Phys: Juan Francisco Oneill DO Discharge: ������������������ Date of : 43 Report #: [id number] THIS REPORT FOR: //name// CC: Trudi Oneill DATE OF SERVICE: 01/02/2019 REFERRING PHYSICIAN: Trudi Malagon M.D. CHIEF COMPLAINT: Low back pain and left lower extremity pain with paresthesias. HISTORY OF PRESENT ILLNESS: As you know, the patient is a 73-year-old female with longstanding history of low back pain and left lower extremity pain with paresthesias, who returns today in followup visit requesting adjustments in medication management. She feels that the current use of Percocet is good for pain control but is experiencing ongoing knee pain. She has been facing ongoing and progressive worsening knee pain for some time. She has sought no treatment for this today. She returns today in followup visit for refills of her Percocet for which she feels pain control is nearly optimized but is also requesting adjustments in therapy to address knee pain. ALLERGIES: No known drug allergies. CURRENT MEDICATIONS: Cozaar 50 mg once a day, oxycodone 7.5/325 one tab p.o. q. 8 hours p.r.n. for pain, diclofenac gel apply topically up to 3 times a day, aspirin 81 mg per day, Symbicort daily, promethazine with codeine p.r.n., Flonase 2 sprays each nostril per day, Zofran 4 mg p.r.n., Singulair 10 mg p.o. at bedtime, Restoril 30 mg p.o. at bedtime, omeprazole 40 mg per day, Zantac 150 mg p.o. daily, Myrbetriq 25 mg once a day, hydrochlorothiazide 25 mg per day, diltiazem 300 mg once a day, potassium chloride 20 mEq 3 times a day and tizanidine 2 mg p.r.n. SOCIAL HISTORY: The patient denies tobacco, alcohol or IV or illicit drug use. She is retired, unaccompanied today. PQRS: The patient has known osteoarthritic changes of the lumbar spine and bilateral knees. She places pain intensity at 10/10 today. She is not typically a fall risk but has had a fall in the 3 months. She "slipped on a floor" that was wet. She is not on blood thinners but is treated for hypertension. She is on chronic opioids. She has a low opioid addiction potential. She is placing pain impact score 41/70 indicating hiblxswe-ba-[id number] interference of daily activities secondary to pain. PHYSICAL EXAMINATION: [address] [address] PAIN MANAGEMENT CONSULTATION Name: FLAKO BUSTILLO Room #: REG Mariya Tsang#: [id number] Admission: 01/02/19 ������������������ Attend Phys: Juan Francisco Oneill DO Discharge: ������������������ Date of : 43 Report #: [id number] VITAL SIGNS: Blood pressure 149/98, pulse 80 and respiratory rate 20 and unlabored. The patient is 100% on room air. Height 5 feet 5 inches tall, weight 176.8 pounds and BMI calculated 29.4. GENERAL: Well-developed, well-nourished, well-hydrated 73-year-old female appearing stated age, placing current pain score at 10/10. HEENT: Normocephalic and atraumatic. Pupils equal, round and reactive to light. EXTREMITIES: Show no clubbing, no cyanosis and no edema. MUSCULOSKELETAL: Lower extremity strength appears symmetrical 5/5. Gait antalgic favoring left lower extremity over right today. Pain is elicited with active and passive range of motion of the left knee. There is no laxity in the medial collateral or lateral collateral ligaments. Drawer tests are negative. There is some swelling over the left knee. ASSESSMENT: 1. Chronic lumbar radiculopathy. 2. Displacement of the lumbar intervertebral disk with radiculopathy. 3. Lumbosacral spondylosis with radiculopathy. 4. Lumbar degeneration. 5. Left knee pain. 6. Left knee osteoarthritis. 7. Intractable pain. PLAN: 1. The patient returns today in followup visit for continuation of medication therapy. She feels the Percocet is working well for pain control. This in conjunction with intermittent epidural injections and the changes in her daily activity have improved symptoms from the low back standpoint and lumbar radicular standpoint. She requests refill of those medications, but also is requesting treatment for left knee pain. We discussed treatments in regards to the left knee and we will make adjustments in medications today for that issue. 2. We reviewed the fact that opiate medications are being used to provide analgesia adequate to support activities of daily living, not attempting to achieve a specific pain score on the 0-10 Visual Analog Scale. The current opiate medications are providing sufficient analgesia to allow the patient to participate in activities of daily living. The patient is not exhibiting any aberrant behavior suggestive of drug diversion. The patient is not having any adverse reactions to medications. The patient is not suffering from daytime somnolence or mental acuity changes. The patient is managing opiate-induced constipation with appropriate ctpe-fbi-qhiazqc agents and dietary considerations. The patient was counseled on concern for caution with operating a motor vehicle while using opiate medications. A physical exam was performed and the patient's functional status was evaluated. All patients with back pain were advised against the bed rest greater than 4 days and were advised to return to normal activities. Pain score assessment was [facility] [address] [place] [place] [address] PAIN MANAGEMENT CONSULTATION Name: FLAKO BUSTILLO Room #: REG LATOYA Tsang#: [id number] Admission: 01/02/19 ������������������ Attend Phys: Juan Francisco Oneill DO Discharge: ������������������ Date of : 43 Report #: [id number] noted and the treatment plan was reviewed with the patient. All current medications, both prescribed and OTC were reviewed and reconciled on the electronic medical record. Tobacco screening was accomplished and smoking cessation was advised when indicated. BMI was noted and diet/exercise modification was recommended for all patients following outside normal parameters. I reviewed with the patient today their responsibilities to safeguard prescription medications, reviewed their responsibility to utilize medications only as prescribed by the physician. They are to seek and receive pain medications only from 1 physician group ([facility]). They are to use 1 pharmacy and keep the clinic informed if they change pharmacies. Their responsibilities include making followup visits in a timely fashion and to avoid abrupt discontinuation of medication usage. Their responsibilities further include bringing their medications (bottles from the pharmacy with residual pills) to the visit for possible confirmation of pill counts and the patient understands it is their responsibility to submit to random drug screens to ensure both that the medications prescribed are present, and that no other controlled substances are present. All prescriptions provided today were generated electronically. 3. The patient was provided a prescription of Percocet 7.5/325 one tab p.o. q. 8 hours p.r.n. for pain, I have given the patient #90 tablets, releasing today and 4 weeks from today, 2 months' worth of medication. 4. The patient was provided samples of Flector patch to apply topically to the left knee. If the patient notes improvement with these samples, we will write a full prescription for the medication to be sent to her local pharmacy. She will contact our patient with response to the Flector patch next week and if this appears to improve the patient's symptoms, we will provide a full prescription. 5. We will see the patient back in followup visit on an as needed basis for possible next in the series of epidural injections. Otherwise, we will see her back in 2 months for medication management. ��������������������������������������������� <ELECTRONICALLY SIGNED> ���������������������������������������� By: Juan Francisco Oneill DO ��������������������������������������������� 01/10/19 1217 [id number] [id number] Juan Francisco Oneill DO /nt
== END ==
LOC: EDBD 11-14 12:17 → PAIN 11-14 12:17
DX: M47.27 Other spondylosis with radiculopathy, lumbosacral region (principal); M51.17 Intervertebral disc disorders with radiculopathy, lumbosacral region; M17.12 Unilateral primary osteoarthritis, left knee

== ENCOUNTER 2019-01-28 09:43 | Emergency (ER) | payer OTHER ==
[~2019-01-28] VITALS: Ht 165.1 cm; Wt 76.7 kg
[~2019-01-28 09:43] MED LIST changes: +FLECTOR PATCH1 EA TRANSDERM
[2019-01-28 09:44] VITALS: BP 139/79
[2019-01-28] MEDS ORDERED: ACCUNEB SO1.25 MG/1 INH (11:02)
[2019-01-28] MEDS ORDERED: TESSALON PERLE100 MG PO (11:02)
[2019-01-28] MEDS ORDERED: VENTOLIN HFA 1818 GM INH (11:04)
== END 2019-01-28 11:22 | disposition home or self-care (01) ==
LOC: ER 09:43
DX: J06.9 Acute upper respiratory infection, unspecified (principal); J98.01 Acute bronchospasm; I10 Essential (primary) hypertension

== ENCOUNTER → 2019-03-06 | Outpatient (CLI) | payer OTHER ==
[~2019-03-06] VITALS: Ht 165.1 cm; Wt 76.5 kg
[~2019-03-06] MED LIST changes: +ACCUNEB SO1.25 MG/1 INH; +CATAPRES0.2 MG PO; +ROPINIROLE HCL0.5 MG PO; +VENTOLIN HFA 1818 GM INH
[2019-03-06 10:34] VITALS: BP 108/60
--- NOTE | 2019-03-06 10:50 | NUR ---
Pain Clinic Assessment: 1. History of Osteoarthritis: Not Applicable History of Rheumatoid Arthritis: Not Applicable 2. Height: 5 ft. 5 in. 165.1 cm. Weight: 168.6 lb. oz. 76.476 kg. Patient's BMI: 28.1 3. Vital Signs: BP: 108/60 Pulse: 77 Resp: 16 Temp: 02 Sat: 100 ECG Mon: 4. Pain Intensity: 9 5. Fall Risk: Dizziness: N Needs help standing or walking: Y Fallen in the last 3 months: N Fall risk comments: TRIPPED ON SLIPPERY FLOOR 6. Patient on Blood Thinner: None 7. History of Hypertension: Y 8. Opioid Therapy greater than 6 weeks: N Opiate Contract Signed: 9. Risk Assessment Tool Provided: 0-LOW 10. Functional Assessment Tool: 41/ 11. Recreational Drug Use: Never Drug Type: Tobacco Use: Never Smoker Tobacco Type: Amount or Packs/day: How Many Years: Alcohol Use: No Frequency: Quant:
--- NOTE | 2019-03-07 14:09 | HPC ---
[facility] [place] [address] PAIN MANAGEMENT CONSULTATION Name: FLAKO BUSTILLO Room #: REG LATOYA Tsang#: [id number] Admission: 03/06/19 Attend Phys: Roselyn Valdez Discharge: Date of : 43 Report #: [id number] THIS REPORT FOR: //name// CC: Roselyn Malagon DATE OF SERVICE: 03/06/2019 CHIEF COMPLAINT: Chronic low back pain, left knee pain, recent status post knee replacement. HISTORY OF PRESENT ILLNESS: This is a very pleasant 73-year-old female who returned to the pain clinic today for refill of her medications that she uses to help treat her ongoing low back pain and most recently her left knee replacement pain. She reports a pain score of 9/10 today, it is a sharp, tender feeling, especially in her knee. It is worse with walking and standing. The medications are usually helpful as well as resting. She is walking with a walker today since it has been about one month since her knee replacement. The patient informed us that she did get 40 pills of oxycodone from Dr. Dewey following her surgery. This was decrease in the strength of her normal Percocet 7.5/325 pills that she typically takes. The patient tells me they were very ineffective and she has been having significant pain in her knee. She is due for a refill of her medications from us today. The patient has recently started physical therapy in the Department. She had been getting home therapy until last week. She does report she has 94 degrees of flexion with her knee so far. ALLERGIES: No known drug allergies. CURRENT LIST OF MEDICATIONS: Ropinirole, Catapres, albuterol, diclofenac p.r.n., Percocet 7.5/325 p.r.n., Cozaar, aspirin, Symbicort, Restoril, omeprazole, Zantac, Myrbetriq, hydrochlorothiazide, diltiazem, potassium, Ultram p.r.n. and Zanaflex. PQRS: 1. The patient has known arthritic changes in her lumbar spine and bilateral knees. 2. Vital signs: 108/60, pulse is 77, respirations 16, oxygen sat is 100. 3. Height is 5 feet 5 inches, weight is 168, BMI is 28. 4. Pain score is 9/10. 5. Fall risk, denies dizziness. Does need help walking and standing. Has used a walker today. 6. The patient is not on any blood thinners, does take medicine for hypertension. 7. Opiate therapy is greater than 6 weeks; therefore, an opioid signed contract is on the chart. 8. Risk assessment tool is low. Functional assessment is 41/70. [address] [address] PAIN MANAGEMENT CONSULTATION Name: FLAKO BUSTILLO Room #: REG LATOYA Tsang#: [id number] Admission: 03/06/19 Attend Phys: Roselyn Valdez Discharge: Date of : 43 Report #: [id number] 9. Recreational drug use, she denies. She is not a smoker and does not drink alcohol. We attempted the prescription monitoring system. She is not showing up today, unsure why she has showed in the past. The patient did bring her prescription bottle of her latest medication fill from her surgeon with her today. PHYSICAL EXAMINATION: GENERAL: This is a well-developed, well-nourished, well-hydrated 73-year-old female who appears her stated age, placing her current pain score today at 9/10. HEENT: Normocephalic, atraumatic. Pupils equal, round and reactive to light. EXTREMITIES: No clubbing, no cyanosis, 1+ edema in her left knee today. MUSCULOSKELETAL: Lower extremity strength appears symmetrical at 5/5. Gait is antalgic favoring her left lower extremity over her right. She has pain in her left knee with active and passive range of motion. She does have a well-healed scar on her left knee from her recent replacement slight swelling of 1+ edema over her left knee as well. IMPRESSION: 1. Chronic lumbar radiculopathy. 2. Displacement of lumbar intervertebral disk with radiculopathy. 3. Lumbar spondylosis with radiculopathy. 4. Lumbar degeneration. 5. Left knee pain, status post knee replacement. 6. Osteoarthritis of bilateral knees. 7. Intractable pain. We reviewed the fact that opiate medications are being used to provide analgesia adequate to support activities of daily living, not attempting to achieve a specific pain score on the 0-10 Visual Analog Scale. The current opiate medications are providing sufficient analgesia to allow the patient to participate in activities of daily living. The patient is not exhibiting any aberrant behavior suggestive of drug diversion. The patient is not having any adverse reactions to medications. The patient is not suffering from daytime somnolence or mental acuity changes. The patient is managing opiate-induced constipation with appropriate oout-fcz-ovjslqq agents and dietary considerations. The patient was counseled on concern for caution with operating a motor vehicle while using opiate medications. A physical exam was performed and the patient's functional status was evaluated. All patients with back pain were advised against the bed rest greater than 4 days and were advised to return to normal activities. Pain score assessment was noted and the treatment plan was reviewed with the patient. All current medications, both prescribed and OTC were reviewed and reconciled on the electronic medical record. Tobacco screening was accomplished and smoking cessation was advised when indicated. BMI was noted and diet/exercise [facility] [address] [place] [address] PAIN MANAGEMENT CONSULTATION Name: FLAKO BUSTILLO [facility] [id number] Admission: 03/06/19 Attend Phys: Roselyn Valdez Discharge: Date of : 43 Report #: [id number] modification was recommended for all patients following outside normal parameters. I reviewed with the patient today their responsibilities to safeguard prescription medications, reviewed their responsibility to utilize medications only as prescribed by the physician. They are to seek and receive pain medications only from 1 physician group ( [facility]). They are to use 1 pharmacy and keep the clinic informed if they change pharmacies. Their responsibilities include making followup visits in a timely fashion and to avoid abrupt discontinuation of medication usage. Their responsibilities further include bringing their medications (bottles from the pharmacy with residual pills) to the visit for possible confirmation of pill counts and the patient understands it is their responsibility to submit to random drug screens to ensure both that the medications prescribed are present, and that no other controlled substances are present. All prescriptions provided today were generated electronically. PLAN: 1. We discussed treatment options with the patient today. The patient is here for refill of her oxycodone 7.5/325. She feels those are much more beneficial in controlling her pain than the 5 mg she received from her recent surgeon. Scripts given today for #90 for today release and 4-week release. We did talk about safeguarding her medications since she did lose a prescription in January. The patient did not ask for refills of those medications, has done without medications prior to her short script from her surgeon. 2. The patient denies any problems with daytime sleepiness or constipation. 3. We encouraged the patient to ask her surgeon if she is able to take a nonsteroidal anti-inflammatory. I think this will be beneficial in relieving some of her knee pain. The patient has an appointment tomorrow. We will discuss it then. 4. The patient is seen today in collaboration with Dr. Juan Francisco Oneill, who did see the patient as well. <ELECTRONICALLY SIGNED> By: Roselyn Valdez 03/07/19 1409 [id number] 0101 Roselyn Valdez /nt
== END ==
LOC: PAIN 06:54
DX: M47.26 Other spondylosis with radiculopathy, lumbar region (principal); M51.16 Intervertebral disc disorders with radiculopathy, lumbar region; M17.0 Bilateral primary osteoarthritis of knee; G89.4 Chronic pain syndrome; Z96.652 Presence of left artificial knee joint; Z79.899 Other long term (current) drug therapy; Z79.82 Long term (current) use of aspirin

== ENCOUNTER → 2019-05-01 | Outpatient (CLI) | payer OTHER ==
[~2019-05-01] VITALS: Ht 165.1 cm; Wt 75.3 kg
[2019-05-01 14:10] VITALS: BP 181/99
--- NOTE | 2019-05-01 14:21 | NUR ---
Pain Clinic Assessment: 1. History of Osteoarthritis: LEFT KNEE History of Rheumatoid Arthritis: DENIES 2. Height: 5 ft. 5 in. 165.1 cm. Weight: 166.0 lb. oz. 75.297 kg. Patient's BMI: 27.6 3. Vital Signs: BP: 181/99 Pulse: 77 Resp: 12 Temp: 02 Sat: 100 ECG Mon: 4. Pain Intensity: 7 5. Fall Risk: Dizziness: N Needs help standing or walking: N Fallen in the last 3 months: N Fall risk comments: TRIPPED ON SLIPPERY FLOOR 6. Patient on Blood Thinner: None 7. History of Hypertension: Y 8. Opioid Therapy greater than 6 weeks: Y Opiate Contract Signed: 01/02/19 9. Risk Assessment Tool Provided: 0-LOW 10. Functional Assessment Tool: 11. Recreational Drug Use: Never Drug Type: Tobacco Use: Never Smoker Tobacco Type: Amount or Packs/day: How Many Years: Alcohol Use: No Frequency: Quant:
--- NOTE | 2019-05-15 07:57 | HPC ---
[facility] [place] [address] PAIN MANAGEMENT CONSULTATION Name: IWONAFLAKO A [facility] #: [facility] [id number] Admission: 05/01/19 Attend Phys: Juan Francisco Oneill DO Discharge: Date of : 43 Report #: [id number] THIS REPORT FOR: //name// CC: Trudi Oneill DATE OF SERVICE: 05/01/2019 REFERRING PHYSICIAN: Trudi Malagon MD CHIEF COMPLAINT: Low back pain, left knee pain status post total knee arthroplasty and right foot pain. HISTORY OF PRESENT ILLNESS: As you know, the patient is a pleasant 73-year-old female who returns today in followup visit for refill of medications. She uses medications to help with ongoing back pain, left knee pain status post knee arthroplasty. She is placing pain today at a level of 7/10. The majority of her pain is coming from the toe on the right side. She states that this toe has begun to show changes concerning and also increasing pain. She has not sought evaluation through her primary care physician, nor has she discussed treatment with Podiatry. She returns today to continue medication management. ALLERGIES: No known drug allergies. CURRENT MEDICATIONS: Ropinirole, Catapres, albuterol, diclofenac, Percocet, Cozaar, aspirin, Symbicort, Restoril, omeprazole, Zantac, Myrbetriq, hydrochlorothiazide, diltiazem, potassium, Ultram and Zanaflex. SOCIAL HISTORY: The patient reports herself a nonsmoker. Denies IV or illicit drug use. Denies any chronic alcohol use. She is unaccompanied today. IMAGING: No new imaging available. PQRS: The patient has arthritic changes of the lumbar spine, bilateral knees, status post total knee arthroplasty. She denies rheumatoid arthritis. She is placing pain intensity at 7/10, not a fall risk, has not had a fall in last 3 months. She is not on blood thinners. She is treated for hypertension. She is on chronic opioids and has a low opioid addiction potential. Pain impact score 41/70, moderate interference of daily activities secondary to pain. PHYSICAL EXAMINATION: VITAL SIGNS: Blood pressure 181/99, pulse 77, respiratory rate 12 and unlabored. The patient is 100% on room air. Height 5 feet 5 inches tall, weight 166 pounds, BMI calculated 27.6. GENERAL: Well-developed, well-nourished, well-hydrated 73-year-old female, [place] [address] PAIN MANAGEMENT CONSULTATION Name: FLAKO BUSTILLO Room #: REG [facility]#: [id number] Admission: 05/01/19 Attend Phys: Juan Francisco Oneill DO Discharge: Date of : 43 Report #: [id number] appearing stated age, pain is rated around 7/10. HEENT: Normocephalic, atraumatic. Pupils equal, round, reactive to light. EXTREMITIES: Show no clubbing, no cyanosis, no edema. MUSCULOSKELETAL: Lower extremity strength is symmetrical 5/5. Gait slightly antalgic favoring right lower extremity today due to toe discomfort on the right. Well-healed surgical scars over the total knee arthroplasty. Palpatory tenderness over the paraspinal musculature of lower lumbar spine. No spinous process tenderness. ASSESSMENT: 1. Chronic lumbar radiculopathy. 2. Displacement of lumbar intervertebral disk with radiculopathy. 3. Lumbosacral spondylosis with radiculopathy. 4. Lumbar degeneration. 5. Right toe pain. 6. Osteoarthritis, bilateral knees. 7. Chronic intractable pain. PLAN: 1. The patient returns today in followup visit with increasing pain over the right toe. She does have changes in that toe that are concerning. She states pain has intensified, as has the lesion on the toe itself. We recommend the patient follow up with Podiatry in regards to this issue. She has not sought evaluation through her primary care physician. We will send the patient for a Podiatry consultation. We will try to facilitate getting the patient in early to have this evaluated and treated. This is the main pain generator in the foot today. 2. The patient was provided a prescription for Podiatry. 3. The patient was provided refill prescription of Percocet 7.5/325 one tab p.o. q.6 hours p.r.n. for pain. I have given the patient #90 tablets, releasing today and 4 weeks from today, 2 months' worth of medication. The patient was advised to take no more than 3 tablets per day. She is not to rely on the medication prophylactically. 4. We reviewed the fact that opiate medications are being used to provide analgesia adequate to support activities of daily living, not attempting to achieve a specific pain score on the 0-10 Visual Analog Scale. The current opiate medications are providing sufficient analgesia to allow the patient to participate in activities of daily living. The patient is not exhibiting any aberrant behavior suggestive of drug diversion. The patient is not having any adverse reactions to medications. The patient is not suffering from daytime somnolence or mental acuity changes. The patient is managing opiate-induced constipation with appropriate hisi-eyc-yztrwua agents and dietary considerations. The patient was counseled on concern for caution with operating a motor vehicle while using opiate medications. A physical exam was performed and the patient's functional status was evaluated. [address] [place] [address] PAIN MANAGEMENT CONSULTATION Name: IWONAFLAKO A Room #: REG JOHNMariya Tsang#: [id number] Admission: 05/01/19 Attend Phys: Juan Francisco Oneill DO Discharge: Date of : 43 Report #: [id number] All patients with back pain were advised against the bed rest greater than 4 days and were advised to return to normal activities. Pain score assessment was noted and the treatment plan was reviewed with the patient. All current medications, both prescribed and OTC were reviewed and reconciled on the electronic medical record. Tobacco screening was accomplished and smoking cessation was advised when indicated. BMI was noted and diet/exercise modification was recommended for all patients following outside normal parameters. I reviewed with the patient today their responsibilities to safeguard prescription medications, reviewed their responsibility to utilize medications only as prescribed by the physician. They are to seek and receive pain medications only from 1 physician group ( [facility]). They are to use 1 pharmacy and keep the clinic informed if they change pharmacies. Their responsibilities include making followup visits in a timely fashion and to avoid abrupt discontinuation of medication usage. Their responsibilities further include bringing their medications (bottles from the pharmacy with residual pills) to the visit for possible confirmation of pill counts and the patient understands it is their responsibility to submit to random drug screens to ensure both that the medications prescribed are present, and that no other controlled substances are present. All prescriptions provided today were generated electronically. 5. We will see the patient back in followup visit in 2 months for medication management and discuss interventional treatments. <ELECTRONICALLY SIGNED> By: Juan Francisco Oneill DO 05/15/19 0757 [id number] Juan Francisco Oneill DO /nt
== END ==
LOC: EDBD → PAIN 06:56 → EDBD 06:56 → PAIN 13:02
DX: M51.16 Intervertebral disc disorders with radiculopathy, lumbar region (principal); M47.27 Other spondylosis with radiculopathy, lumbosacral region; M17.0 Bilateral primary osteoarthritis of knee; G89.4 Chronic pain syndrome

== ENCOUNTER → 2019-08-01 | Outpatient (CLI) | payer OTHER ==
[~2019-08-01] VITALS: Ht 165.1 cm; Wt 78.9 kg
[~2019-08-01] MED LIST changes: +FLECTOR PATCH1 EA TOP
[2019-08-01 15:02] VITALS: BP 192/97
--- NOTE | 2019-08-01 15:13 | NUR ---
Pain Clinic Assessment: 1. History of Osteoarthritis: LEFT KNEE History of Rheumatoid Arthritis: DENIES 2. Height: 5 ft. 5 in. 165.1 cm. Weight: 174.0 lb. oz. 78.926 kg. Patient's BMI: 29.0 3. Vital Signs: BP: 192/97 Pulse: 66 Resp: 18 Temp: 02 Sat: 100 ECG Mon: 4. Pain Intensity: 7 5. Fall Risk: Dizziness: N Needs help standing or walking: N Fallen in the last 3 months: N Fall risk comments: TRIPPED ON SLIPPERY FLOOR 6. Patient on Blood Thinner: None 7. History of Hypertension: Y 8. Opioid Therapy greater than 6 weeks: Y Opiate Contract Signed: 01/02/19 9. Risk Assessment Tool Provided: 0-LOW 10. Functional Assessment Tool: 11. Recreational Drug Use: Never Drug Type: Tobacco Use: Never Smoker Tobacco Type: Amount or Packs/day: How Many Years: Alcohol Use: No Frequency: Quant:
--- NOTE | 2019-08-02 16:04 | HPC ---
[facility] [address] [address] PAIN MANAGEMENT CONSULTATION Name: IWONAFLAKO Ricardo Room #: REG [facility] Trinh#: [id number] Admission: 08/01/19 Attend Phys: Roselyn Valdez Discharge: Date of : 43 Report #: [id number] THIS REPORT FOR: //name// CC: Roselyn Oneill DO DATE OF SERVICE: 08/01/2019 CHIEF COMPLAINT: Low back pain; left knee pain, status post knee replacement. HISTORY OF PRESENT ILLNESS: This is a very pleasant 73-year-old female who returns to the pain clinic today for refill of her medications that she takes to help treat her ongoing low back pain and left leg pain. She reports that it is a sharp, tender feeling, especially in the left leg. Her current pain score is 7/10 because she has been out of her medications for several days. She reports she was busy with Fabien and preoccupied with family and did not make an appointment and so she has been out. She reports that when she does take her oxycodone, her pain score would be closer to 3/10. Her pain is exacerbated by walking, lifting and bending, but again the medications are very beneficial. She denies any problems with constipation or daytime sleepiness when she does take her medications. The patient is requesting a refill of her Flector patches, which we had given her early last year. She found those very beneficial to put on her back when her pain is increased, before taking a pain pill. ALLERGIES: No known drug allergies. CURRENT LIST OF MEDICATIONS: Oxycodone 7.5/325 p.r.n., ropinirole, clonidine, albuterol, Flector patch p.r.n., Cozaar, diclofenac gel p.r.n., aspirin, Symbicort, ophthalmic drops, Singulair, loratadine, Restoril, omeprazole, Zantac, Myrbetriq, hydrochlorothiazide, diltiazem, potassium, tramadol p.r.n. and tizanidine. PQRS: 1. She has arthritic changes in her lumbar spine, bilateral knees and denies any rheumatoid arthritis. 2. Height is 5 feet 5 inches, weight is 174, BMI is 29. 3. Vital signs: Blood pressure 192/97, then retaken at 160/80, manually; pulse is 66; respirations 18; oxygen sat is 100. 4. Pain score is 7/10. 5. Denies dizziness, does not need help walking or standing, has not fallen in the last [address] [address] PAIN MANAGEMENT CONSULTATION Name: FLAKO BUSTILLO Room #: REG LATOYA Tsang#: [id number] Admission: 08/01/19 Attend Phys: Roselyn Valdez Discharge: Date of : 43 Report #: [id number] 6. The patient is not on any blood thinners, but does take medicine for hypertension. Opioid therapy is greater than 6 weeks; therefore, an opioid signed contract is on the chart. Risk assessment tool is low. Functional assessment is 41/70. 7. Recreational drug use, she denies. She is not a smoker and does not drink alcohol. According to the prescription monitoring system, the patient is past due to fill her opioid medications. She does take these very sparingly. Her morphine mEq is 0-33 a day of the MMEs. PHYSICAL EXAMINATION: GENERAL: This is a well-developed, well-hydrated 73-year-old female who appears her stated age, placing her pain score at 7/10 today. HEENT: Normocephalic, atraumatic. Extraocular eye muscles are intact. Mucous membranes are moist. EXTREMITIES: No clubbing, no cyanosis, no edema. MUSCULOSKELETAL: Her gait is slightly antalgic. She has palpatory tenderness over her lower lumbar spine, no spinous process tenderness. Her lower extremity strength judged to be 5/5 with equal symmetry and tone. Her pain does radiate down from her lumbar spine following the left leg in the L4-L5 and L5-S1 dermatomal distribution. ASSESSMENT: 1. Chronic lumbar radiculopathy. 2. Displacement of lumbar intervertebral disk with radiculopathy. 3. Lumbosacral spondylosis with radiculopathy. 4. Lumbar degeneration. 5. Osteoarthritis, bilateral knees with recent replacement. 6. Chronic intractable pain. PLAN: 1. We discussed treatment options with the patient today. The patient finds her oxycodone very beneficial in controlling her pain, though she does not rely on it on a daily basis. We will refill her medications of oxycodone 7.5/325, #90. These will be sent electronically to her pharmacy by Dr. Juan Francisco Oneill for today and 4-week release. 2. We discussed that the patient finds her Flector patches very beneficial in helping some of her back pain as well as her knee pain. The patient has not had this medication for quite some time and we will refill this medicine and send it to the pharmacy for 30 patches with one additional refill. This should help with her osteoarthritic pain. 3. The patient encouraged to call for an appointment when she is running low to prevent any withdrawal symptoms or to prevent having increase in pain. She [address] [address] PAIN MANAGEMENT CONSULTATION Name: FLAKO BUSTILLO Room #: AUTUMN Tsang#: [id number] Admission: 08/01/19 Attend Phys: Roselyn Valdez Discharge: Date of : 43 Report #: [id number] verbalizes understanding. 4. The patient is seen in collaboration today with Dr. Juan Francisco Oneill. <ELECTRONICALLY SIGNED> By: Roselyn Valdez 08/02/19 1604 [id number] 0223 Roselyn Valdez /nt
== END ==
LOC: PAIN 06:57 → EDBD 06:57 → PAIN 15:30
DX: M51.16 Intervertebral disc disorders with radiculopathy, lumbar region (principal); M25.562 Pain in left knee; G89.29 Other chronic pain; Z79.899 Other long term (current) drug therapy; Z96.653 Presence of artificial knee joint, bilateral

== ENCOUNTER 2019-09-09 14:02 | Emergency (ER) | payer OTHER ==
[~2019-09-09] VITALS: Ht 165.1 cm; Wt 72.6 kg
[2019-09-09] MEDS ORDERED: AMOXICILLIN875 MG PO (16:44)
[2019-09-09] MEDS ORDERED: TESSALON PERLE100 MG PO (16:44)
[2019-09-09 16:45] VITALS: BP 163/85
== END 2019-09-09 16:45 | disposition home or self-care (01) ==
LOC: ER 14:02
DX: J01.90 Acute sinusitis, unspecified (principal); I10 Essential (primary) hypertension; Z98.890 Other specified postprocedural states

== ENCOUNTER → 2019-09-26 | Outpatient (CLI) | payer OTHER ==
[~2019-09-26] VITALS: Ht 165.1 cm; Wt 78.3 kg
[~2019-09-26] MED LIST changes: +AMOXICILLIN875 MG PO
[2019-09-26 14:23] VITALS: BP 183/99
--- NOTE | 2019-09-26 14:36 | NUR ---
Pain Clinic Assessment: 1. History of Osteoarthritis: LEFT KNEE History of Rheumatoid Arthritis: DENIES 2. Height: 5 ft. 5 in. 165.1 cm. Weight: 172.6 lb. oz. 78.291 kg. Patient's BMI: 28.7 3. Vital Signs: BP: 183/99 Pulse: 58 Resp: 16 Temp: 02 Sat: 100 ECG Mon: 4. Pain Intensity: 7 5. Fall Risk: Dizziness: N Needs help standing or walking: N Fallen in the last 3 months: N Fall risk comments: TRIPPED ON SLIPPERY FLOOR 6. Patient on Blood Thinner: None 7. History of Hypertension: Y 8. Opioid Therapy greater than 6 weeks: Y Opiate Contract Signed: 01/02/19 9. Risk Assessment Tool Provided: 0-LOW 10. Functional Assessment Tool: 11. Recreational Drug Use: Never Drug Type: Tobacco Use: Never Smoker Tobacco Type: Amount or Packs/day: How Many Years: Alcohol Use: No Frequency: Quant:
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
== END ==
LOC: PAIN → EDBD → PAIN 07-31 06:55
DX: M51.16 Intervertebral disc disorders with radiculopathy, lumbar region (principal); M47.26 Other spondylosis with radiculopathy, lumbar region; G89.4 Chronic pain syndrome; Z96.653 Presence of artificial knee joint, bilateral; Z79.899 Other long term (current) drug therapy

== ENCOUNTER → 2019-11-27 | Outpatient (CLI) | payer OTHER ==
[~2019-11-27] VITALS: Ht 165.1 cm; Wt 78.7 kg
[2019-11-27 10:02] VITALS: BP 154/97
--- NOTE | 2019-11-27 10:18 | NUR ---
Pain Clinic Assessment: 1. History of Osteoarthritis: LEFT KNEE History of Rheumatoid Arthritis: DENIES 2. Height: 5 ft. 5 in. 165.1 cm. Weight: 173.4 lb. oz. 78.654 kg. Patient's BMI: 28.9 3. Vital Signs: BP: 154/97 Pulse: 58 Resp: 16 Temp: 02 Sat: 100 ECG Mon: 4. Pain Intensity: 8 5. Fall Risk: Dizziness: N Needs help standing or walking: N Fallen in the last 3 months: N Fall risk comments: TRIPPED ON SLIPPERY FLOOR 6. Patient on Blood Thinner: None 7. History of Hypertension: Y 8. Opioid Therapy greater than 6 weeks: Y Opiate Contract Signed: 01/02/19 9. Risk Assessment Tool Provided: 0-LOW 10. Functional Assessment Tool: 11. Recreational Drug Use: Never Drug Type: Tobacco Use: Never Smoker Tobacco Type: Amount or Packs/day: How Many Years: Alcohol Use: No Frequency: Quant:
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
== END ==
LOC: PAIN 06:48
DX: M51.17 Intervertebral disc disorders with radiculopathy, lumbosacral region (principal); M17.0 Bilateral primary osteoarthritis of knee; G89.29 Other chronic pain; Z79.899 Other long term (current) drug therapy

== ENCOUNTER → 2020-01-23 | Outpatient (CLI) | payer OTHER ==
[~2020-01-23] VITALS: Ht 165.1 cm; Wt 80.7 kg
[2020-01-23 10:37] VITALS: BP 172/102
--- NOTE | 2020-01-23 10:42 | NUR ---
Pain Clinic Assessment: 1. History of Osteoarthritis: LEFT KNEE History of Rheumatoid Arthritis: DENIES 2. Height: 5 ft. 5 in. 165.1 cm. Weight: 178.0 lb. oz. 80.740 kg. Patient's BMI: 29.6 3. Vital Signs: BP: 172/102 Pulse: 76 Resp: 18 Temp: 02 Sat: 100 ECG Mon: 4. Pain Intensity: 8 5. Fall Risk: Dizziness: N Needs help standing or walking: N Fallen in the last 3 months: N Fall risk comments: TRIPPED ON SLIPPERY FLOOR 6. Patient on Blood Thinner: None 7. History of Hypertension: Y 8. Opioid Therapy greater than 6 weeks: Y Opiate Contract Signed: 01/02/19 9. Risk Assessment Tool Provided: 0-LOW 10. Functional Assessment Tool: 11. Recreational Drug Use: Never Drug Type: Tobacco Use: Never Smoker Tobacco Type: Amount or Packs/day: How Many Years: Alcohol Use: No Frequency: Quant:
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
== END ==
LOC: PAIN 07:00
PROVIDERS: ATTEND Clinical Nurse Specialist Adult Health
DX: M51.26 Other intervertebral disc displacement, lumbar region (principal); M17.0 Bilateral primary osteoarthritis of knee; Z79.899 Other long term (current) drug therapy; Z79.891 Long term (current) use of opiate analgesic

== ENCOUNTER → 2020-03-25 | Outpatient (CLI) | payer OTHER ==
[~2020-03-25] VITALS: Ht 165.1 cm; Wt 81.0 kg
[~2020-03-25] MED LIST changes: +COZAAR 50 MG TA50 MG PO
[2020-03-25 09:12] VITALS: BP 150/83
--- NOTE | 2020-03-25 09:25 | NUR ---
Pain Clinic Assessment: 1. History of Osteoarthritis: LEFT KNEE History of Rheumatoid Arthritis: DENIES 2. Height: 5 ft. 5 in. 165.1 cm. Weight: 178.6 lb. oz. 81.012 kg. Patient's BMI: 29.7 3. Vital Signs: BP: 150/83 Pulse: 66 Resp: 18 Temp: 02 Sat: 100 ECG Mon: 4. Pain Intensity: 6-7 5. Fall Risk: Dizziness: N Needs help standing or walking: N Fallen in the last 3 months: N Fall risk comments: TRIPPED ON SLIPPERY FLOOR 6. Patient on Blood Thinner: None 7. History of Hypertension: Y 8. Opioid Therapy greater than 6 weeks: Y Opiate Contract Signed: 01/02/19 9. Risk Assessment Tool Provided: 0-LOW 10. Functional Assessment Tool: 11. Recreational Drug Use: Never Drug Type: Tobacco Use: Never Smoker Tobacco Type: Amount or Packs/day: How Many Years: Alcohol Use: No Frequency: Quant:
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
== END ==
LOC: PAIN 06:51
PROVIDERS: ATTEND Clinical Nurse Specialist Adult Health
DX: M51.26 Other intervertebral disc displacement, lumbar region (principal); M51.36 Other intervertebral disc degeneration, lumbar region; M17.0 Bilateral primary osteoarthritis of knee; G89.29 Other chronic pain; F11.20 Opioid dependence, uncomplicated; Z79.899 Other long term (current) drug therapy

== ENCOUNTER → 2020-04-30 | Outpatient (CLI) | payer OTHER ==
[~2020-04-30] VITALS: Ht 165.1 cm; Wt 82.5 kg
[2020-04-30 09:59] VITALS: BP 102/68
--- NOTE | 2020-04-30 10:17 | NUR ---
Pain Clinic Assessment: 1. History of Osteoarthritis: LEFT KNEE History of Rheumatoid Arthritis: DENIES 2. Height: 5 ft. 5 in. 165.1 cm. Weight: 181.8 lb. oz. 82.464 kg. Patient's BMI: 30.3 3. Vital Signs: BP: 102/68 Pulse: 72 Resp: 16 Temp: 02 Sat: 100 ECG Mon: 4. Pain Intensity: 7 5. Fall Risk: Dizziness: N Needs help standing or walking: N Fallen in the last 3 months: N Fall risk comments: TRIPPED ON SLIPPERY FLOOR 6. Patient on Blood Thinner: None 7. History of Hypertension: Y 8. Opioid Therapy greater than 6 weeks: Y Opiate Contract Signed: 01/02/19 9. Risk Assessment Tool Provided: 0-LOW 10. Functional Assessment Tool: 11. Recreational Drug Use: Never Drug Type: Tobacco Use: Never Smoker Tobacco Type: Amount or Packs/day: How Many Years: Alcohol Use: No Frequency: Quant:
--- NOTE | 2020-05-02 07:36 | HPC ---
[facility] [place] [address] [address] [place] [address] PAIN MANAGEMENT CONSULTATION Name: FLAKO BUSTILLO Room #: REG LATOYA Ish.#: [id number] Admission: 04/30/20 Attend Phys: Roselyn Valdez Discharge: Date of : 43 Report #: [id number] CC: Roselyn Oneill DO DATE OF SERVICE: 04/30/2020 CHIEF COMPLAINT: Low back pain, left knee pain. HISTORY OF PRESENT ILLNESS: This is a 74-year-old female who returns to the pain clinic to discuss her opioid medications and opioid drug screens that have been performed. The patient was here in January for her opioid medications. At that time, we did perform a random drug screen. The patient verbally told us that she had taken her medications the day before, it was documented on her drug screen, which she did sign, that drug screen was returned with a negative result of any opioid medication of her oxycodone that she is to take on an as needed basis that we prescribed up to 3 tablets a day, but it was positive for her sleeping medication of temazepam. The patient then returned to us on 03/25/2020, at that time, we did repeat her urine drug screen, again she told us that she had taken her medication, the day before and did sign her consent for the drug test. Again, we have received a negative oxycodone result, this time it was positive for her temazepam as well and positive for codeine and morphine. According to the lab test, oxycodone to stay in your system for 2-4 days despite her telling us she took it was one day prior, it still should have been a positive result. The patient was called and asked to return to the clinic on the and so we could repeat the drug screen at that time. 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 She has out of her oxycodone now since we had prescribed one month of medication, so she was here to discuss this at this visit. ALLERGIES: No known drug allergies. CURRENT LIST OF MEDICATIONS: Oxycodone 7.5/325, Cozaar, diclofenac gel, ropinirole, clonidine, aspirin, Symbicort, promethazine, Codeine p.r.n., Flonase, Zofran, Singulair, loratadine, Restoril, omeprazole, Myrbetriq, hydrochlorothiazide, diltiazem, potassium, and Zanaflex. PQRS: 1. She is positive for osteoarthritis in her left knee. Denies any rheumatoid arthritis. 2. Height is 5 feet 5 inches, weight is 181, BMI is 30. VITAL SIGNS: Blood pressure 102/68, pulse is 72, respirations 16, oxygen sat is 100%. Pain score 7/10. 3. Fall risk. Denies dizziness, does not need help walking or standing, has not fallen in the last 3 months. The patient is not on any blood thinners, but does take medicine for hypertension. Her opioid therapy is greater than 6 weeks; therefore, an opioid signed contract is on our chart. Her risk assessment is low. Functional assessment is 40/70. 4. Recreational drug use, she denies. She is not a smoker and does not drink alcohol. According to the prescription monitoring system, her last prescription fill from our clinic was 03/25/2020. Her morphine mEq according to the CDC guidelines would be 33.7 MME. There are 2 random drug screens on her chart, both negative, which was discussed previously. PHYSICAL EXAMINATION: GENERAL: This is alert and orientated 74-year-old female who is well-developed, well-nourished, rating her pain score today is 7/10. HEENT: Normocephalic, atraumatic. Extraocular eye muscles are intact. She is wearing a mask and glasses. EXTREMITIES: No clubbing, no cyanosis, no edema. MUSCULOSKELETAL: She has tenderness in her lumbosacral region, pain in her left hip that radiates into her thigh. She has a slightly antalgic gait. Her lower extremity strength judged to be symmetrical at 5/5. ASSESSMENT: 1. Chronic low back pain. 2. Displacement of lumbar intervertebral disk with radiculopathy. 3. Lumbar degeneration. 4. 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 5. Chronic intractable pain. 6. Opioid medication management under terms of written agreement. We reviewed the fact that opiate medications are being used to provide analgesia adequate to support activities of daily living, not attempting to achieve a specific pain score on the 0-10 Visual Analog Scale. The current opiate medications are providing sufficient analgesia to allow the patient to participate in activities of daily living. The patient is not exhibiting any aberrant behavior suggestive of drug diversion. The patient is not having any adverse reactions to medications. The patient is not suffering from daytime somnolence or mental acuity changes. The patient is managing opiate-induced constipation with appropriate larw-fel-cvbqnvm agents and dietary considerations. The patient was counseled on concern for caution with operating a motor vehicle while using opiate medications. PLAN: 1. I discussed with the patient the findings of her 2 opioid drug screens as I had previously talked about, both of them being negative. I had had a discussion with Dr. Juan Francisco Oneill who believes we cannot continue to write medications for this patient and put the rest of our clinic in jeopardy of having 2 negative tests and continuing to write opioids when it does not show that she has been taking these medications. I explained this to the patient. I have offered her a weaning dose with parameters to take 2 tablets a day for 1 week of Oxycodone then decrease to 1 tablet a day. This will help prevent withdrawals of this medication. Scripts will be sent electronically by Dr. Juan Francisco Oneill for 21 tablets. 2. I encouraged the patient to continue her diclofenac gel on her left hip. It is now [id number]. We had written for it in the past, but she no longer needs a prescription for this medicine. I did explain to her that we will gladly see her for epidurals if she needs an injection, but we can no longer offer her opioid medications. The patient verbalizes understanding. She is unsure why there was morphine in her urine drug screen. She does state that she does occasionally take Phenergan with Codeine, which was positive for codeine in her urine drug screen. The patient was provided with a copy of these 2 drug screens and instructed that she can continue on opioids if her primary care doctor is wanting to write for these, but again, we will no longer be writing prescriptions after this weaning script is complete. 3. The patient is seen today in collaboration with Dr. Juan Francisco Oneill. <ELECTRONICALLY SIGNED> By: Roselyn Valdez 05/02/20 0736 [id number] Roselyn Valdez /nt
== END ==
LOC: PAIN 06:37
PROVIDERS: ATTEND Clinical Nurse Specialist Adult Health
DX: M17.0 Bilateral primary osteoarthritis of knee (principal); M51.16 Intervertebral disc disorders with radiculopathy, lumbar region; G89.29 Other chronic pain; F11.20 Opioid dependence, uncomplicated; Z96.652 Presence of left artificial knee joint; Z79.899 Other long term (current) drug therapy